=== PATIENT | female | born 1995 | race Caucasian/White ===

== ENCOUNTER 2021-11-05 21:13 | Emergency (ER) | payer BC ==
--- OUTSIDE RECORDS SUMMARY | 2021-11-05 21:21 | XMS REPORT | Continuity of Care Document ---
:1995 Author Organization [facility] t Address [address] [place] [address] Care Team Providers Name Role Phone PCP, PATIENT DOES NOT HAVE A Primary Care Physician Unavaila KALANI Miller III Attending Clinician Unavailable SHARRON SEVILLA Attending Clinician Unavailable Sharron May Attending Clinician HEIDI JAMES Attending Clinician Unavailable Heidi James MD Attending Clinician Shannen George MD Attending Clinician Evette Boles Attending Clinician Gil Bloom DO Attending Clinician SHANNEN GEORGE Attending Clinician Unavailable Noel Carrillo Attending Clinician ALTHEA LEYVA Attending Clinician Unavailable Unknown, Attending Attending Clinician Unavailable Doctor Unassigned, Lloyd Attending Clinician Unavailable Liudmila Baker DO Attending Clinician Shannen George MD Admitting Clinician Payers Payer Name Policy Type Policy Number Effective Date Expiration Date S damien BC[employer] FED SELECT [id number] 2017 00:00:00 Problems Condition Condition Condition Status Onset Resolution Last Treating Co mments Source Name Details Category Date Date Treatment Clinician Date Obesity Obesity Disease Active Univers (BMI (BMI 2-14 ity of 30-39.9) 30-39.9) 00:00: [place] 00 [facility] Acute Acute Disease Active Univers appendicit appendicit 2-13 it y of is is 00:00: [place] [facility] Decreased Decreased Disease Active Uni vers strength strength 9-23 ity of 00:00: [place] [facility] Lumbago Lumbago Disease Active Univers 9-23 ity of 00:00: [place] [facility] Panic Panic Disease Active Univers attack attack 4-05 ity of 00:00: [place] [facility] Abnormal Abnormal Disease Active Unive rs weight weight 7-19 ity of gain gain 00:00: [place] 00 [facility] Allergic Allergic Disease Active Overview: Un lola rhinitis rhinitis Formattin ity of g of this [place] note Medical might be Branch different from the original. ICD10 Diagnosis Term Reimbursement Spec Utility Allergies, Adverse Reactions, Alerts Allergy Allergy Status Severity Reaction(s) Onset Inactive Treating Comm ents Source Name Type Date Date Clinician No Known DA Active [facility] 3-13 [facility] NO KNOWN Drug Active Univers DRUG Class 4-17 ity of ALLERGIE 00:00: [place] S 00 [facility] Branch No Known Propensi Active Univer s Drug ty to 4-17 ity of Allergie adverse 00:00: [place] s reaction Medical s Branch Social History Social Habit Start Date Stop Date Quantity Comments Source Exposure to Not sure [facility] SARS-CoV-2 [facility] (event) Branch Alcohol intake 2021-02-03 2021-02-03 Ex-drinker [facility] 00:00:00 00:00:00 (finding) [facility] Tobacco use and 2012-06-30 2012-06-30 Never used Universit y of exposure 00:00:00 00:00:00 [facility] Sex Ass[birth year] At [birth year] Universit y of 00:00:00 00:00:00 [facility] Smoking Status Start Date Stop Date Source Never smoker [facility] Medications Ordered Filled Start Stop Current Ordering Indication Dosage Frequency Signature Comments Components Source Medication Medication Date Date Medication? Clinician (SIG) Name Name sulfamethox 2020-03- No [id number] 1{tbl} Take 1 Univers azole-trime 03-31 tablet by it y 00:00: 05:59 mouth 2 [place] (BACTRIM 00 :00 (two) Medical DS) 800-160 times Branch mg per daily for tablet 3 days. docusate Yes 100mg 100 mg, Unive rs (COLACE) 2-14 Oral, BID, ity o f capsule 100 06:15: First dose [place] mg 00 on [facility] 04/23/20 at Branch 0015, Until Discontinu ed, Routine alum-mag 2020- No 30mL 30 mL, Univer s hydroxide-s 2- 02-16 Oral, BID, i ty of imeth 06:15: 01:59 4 doses, [place] (MAALOX 00 :00 First dose Medica l PLUS / on [facility] MAG-AL 04/23/20 at PLUS) 0015, Last 200-200-20 dose on mg/5 mL Mon suspension 04/24/20 at 30 mL 0800, Routine ibuprofen Yes 400mg 400 mg, Univ ers (IBU) 2-14 Oral, ity of tablet 400 06:02: Q6[place]PRN[place] 16 Starting [facility] 04/23/20 at 0002, Until Discontinu ed, Routine, Pain (scale 1-3) HYDROcodone Yes 1{tbl} 1 tablet, Univers -acetaminop 2-14 Oral, ity of hen (NORCO) 06:02: Q6HPRN, [place] 10-325 mg 07 Starting Medica l tablet 1 Sun Branch tablet 04/23/20 at 0002, Until Discontinu ed, Routine, Pain (scale 4-6) morpHINE Yes 2mg 2 mg, Slow Uni vers injection 2 2-14 IV Push, ity of mg 06:01: Q4HPRN, [place] 33 Starting [facility] 04/23/20 at 0001, Until Discontinu ed, Routine, Pain (scale 7-10) diphenhydrA No 50mg 50 mg, Uni vers MINE 2-14 -14 Slow IV ity of (BENADRYL) 05:15: 04:21 Push, [place] injection 00 :00 ONCE, 1 Medical 50 mg dose, Sat Branch 04/22/20 at 2315, Routine HYDROcodone 2020-0 2020- No 1{tbl} 1 tablet, Univers -acetaminop 2-14 -14 Oral, ity of hen (NORCO) 04:05: 06:02 Q6HPRN, [place] 10-325 mg 28 :27 Starting Medica l tablet 1 Sat Branch tablet 04/22/20 at 2205, Until 04/23/20 at 0002, Routine, Pain (scale 7-10) amoxicillin 0 Yes [id number] 500mg Take 1 Univers -pot 2-14 tablet by ity of clavulanate 00:00: mouth 3 [place] 500 mg 00 (three) Medical 500-125 mg times Branch tablet daily. HYDROcodone 2020-0 Yes [id number] 1{tbl} Take 1 Un lola -acetaminop 2-14 tablet by ity of hen (NORCO) 00:00: mouth [place] 5-325 mg 00 every 6 Medical tablet (six) Branch hours as needed for Pain (scale 7-10). Indication s: acute pain ibuprofen 0 Yes [id number] 800mg Take 1 U nivers 800 mg 2-14 tablet by ity of tablet 00:00: mouth 3 [place] 00 (three) Medical times Branch daily with meals. acetaminoph 2020-0 Yes 650mg 650 mg, Un lola en 2-14 Oral, Q6H, ity of (TYLENOL) 00:00: [place] tablet 650 00 on Sat Medical mg 04/22/20 at Branch 1800, Until Discontinu ed, Routine amoxicillin 2020-0 Yes [id number] 500mg Take 1 Univers -pot 2-14 tablet by ity of clavulanate 00:00: mouth 3 [place] 500 mg 00 (three) Medical 500-125 mg times Branch tablet daily. HYDROcodone 2020-0 Yes [id number] 1{tbl} Take 1 Un lola -acetaminop 2-14 tablet by ity of hen (NORCO) 00:00: mouth [place] 5-325 mg 00 every 6 Medical tablet (six) Branch hours as needed for Pain (scale 7-10). Indication s: acute pain ibuprofen 2021-0 Yes [id number] 800mg Take 1 U nivers 800 mg 2-14 tablet by ity of tablet 00:00: mouth 3 [place] 00 (three) Medical times Branch daily with meals. amoxicillin 2021-0 Yes [id number] 500mg Take 1 Univers -pot 2-14 tablet by ity of clavulanate 00:00: mouth 3 [place] 500 mg 00 (three) Medical 500-125 mg times Branch tablet daily. HYDROcodone 2021-0 Yes [id number] 1{tbl} Take 1 Un lola -acetaminop 2-14 tablet by ity of hen (NORCO) 00:00: mouth [place] 5-325 mg 00 every 6 Medical tablet (six) Branch hours as needed for Pain (scale 7-10). Indication s: acute pain ibuprofen 1-0 Yes [id number] 800mg Take 1 U nivers 800 mg 2-14 tablet by ity of tablet 00:00: mouth 3 [place] 00 (three) Medical times Branch daily with meals. amoxicillin 1-0 Yes [id number] 500mg Take 1 Univers -pot 2-14 tablet by ity of clavulanate 00:00: mouth 3 [place] 500 mg 00 (three) Medical 500-125 mg times Branch tablet daily. HYDROcodone 2021-0 Yes [id number] 1{tbl} Take 1 Un lola -acetaminop 2-14 tablet by ity of hen (NORCO) 00:00: mouth [place] 5-325 mg 00 every 6 Medical tablet (six) Branch hours as needed for Pain (scale 7-10). Indication s: acute pain ibuprofen 1-0 Yes [id number] 800mg Take 1 U nivers 800 mg 2-14 tablet by ity of tablet 00:00: mouth 3 [place] 00 (three) Medical times Branch daily with meals. amoxicillin 2021-0 Yes [id number] 500mg Take 1 Univers -pot 2-14 tablet by ity of clavulanate 00:00: mouth 3 [place] 500 mg 00 (three) Medical 500-125 mg times Branch tablet daily. HYDROcodone 2021-0 Yes [id number] 1{tbl} Take 1 Un lola -acetaminop 2-14 tablet by ity of hen (NORCO) 00:00: mouth [place] 5-325 mg 00 every 6 Medical tablet (six) Branch hours as needed for Pain (scale 7-10). Indication s: acute pain ibuprofen 2020-0 Yes [id number] 800mg Take 1 U nivers 800 mg 2-14 tablet by ity of tablet 00:00: mouth 3 [place] 00 (three) Medical times Branch daily with meals. amoxicillin 2020-0 Yes [id number] 500mg Take 1 Univers -pot 2-14 tablet by ity of clavulanate 00:00: mouth 3 [place] 500 mg 00 (three) Medical 500-125 mg times Branch tablet daily. HYDROcodone 2020-0 Yes [id number] 1{tbl} Take 1 Un lola -acetaminop 2-14 tablet by ity of hen (NORCO) 00:00: mouth [place] 5-325 mg 00 every 6 Medical tablet (six) Branch hours as needed for Pain (scale 7-10). Indication s: acute pain ibuprofen 2020-0 Yes [id number] 800mg Take 1 U nivers 800 mg 2-14 tablet by ity of tablet 00:00: mouth 3 [place] 00 (three) Medical times Branch daily with meals. ibuprofen 2020-0 2020- No [id number] 800mg Take 1 Univers 800 mg 2-14 02-14 tablet by ity of tablet 00:00: 00:00 mouth 3 [place] 00 :00 (three) Medical times Branch daily with meals. HYDROcodone 2020-0 2021- No [id number] 1{tbl} Take 1 U nivers -acetaminop 2-14 02-14 tablet by it y of hen (NORCO) 00:00: 00:00 mouth [place] 5-325 mg 00 :00 every 6 Medical tablet (six) Branch hours as needed for Pain (scale 7-10) for up to 7 days. Indication s: acute pain amoxicillin 2020-0 2021- No [id number] 500mg Take 1 Univers -pot 2-14 02-14 tablet by ity of clavulanate 00:00: 00:00 mouth 3 [place] 500 mg 00 :00 (three) Medical 500-125 mg times Branch tablet daily for 3 days. lactated 2020-0 Yes 1000mL at 42 Univer s ringers IV 2-13 mL/hr, ity of infusion 23:15: 1,000 mL, [place] 1,000 mL 00 IV Medical Infusion, Branch CONTINUOUS , Starting 04/22/20 at 1715, Until Discontinu ed, Routine, PACU ibuprofen No 400mg 400 mg, Uni vers (IBU) 04-22 Oral, ity of tablet 400 22:49: 06:02 Q6HPRN, [place] mg 08 :27 Starting Medical Sat Branch 04/22/20 at 1649, Until 04/23/20 at 0002, Routine, Pain (scale 4-6) HYDROcodone 2020- No 1{tbl} 1 tablet, Univers -acetaminop 04-22 Oral, ity of hen (NORCO 22:48: 04:05 Q6HPRN, [place] 5) 5-325 mg 59 :57 Starting Medi christen tablet 1 Sat Branch tablet 04/22/20 at 1648, Until 04/22/20 at 2205, Routine, Pain (scale 7-10) piperacilli Yes 3.375g 3.375 g, Univers n-tazobacta 04-22 IV ity of m (ZOSYN) 20:00: [place] 3.375 g in 00 Q6H ABX, Medic al NaCl 0.9% First dose Bran ch (NS) 100 mL on Sat MINI-BAG 04/22/20 at 1400, Until Discontinu ed, 100 mL
R loni for Anti-Infec tive: Documented Infection< br>Documen sly Infection Site: Abdominal< br>Duratio n of Therapy: 7 days iohexol 2020- No 100mL 100 mL, Unive rs (OMNIPAQUE 04-22 Intravenou it y of 350 18:45: 18:25 s, ONCE, 1 [place] BULK-100 00 :00 dose, Sat Medica l mL) 04/22/20 at Branch injection 1245, 100 mL Routine NaCl 0.9% 2020- No 1000mL at 999 Uni vers (NS) bolus 04-22 mL/hr, ity of infusion 18:45: 17:45 1,000 mL, [place] 1,000 mL 00 :00 IV Medical Infusion, Branch ONCE, 1 dose, 2/13/21 at 1245, STAT ondansetron 2020-0 2020- No 4mg 4 mg, Slow Univers (ZOFRAN 04-22 IV Push, ity of (PF)) 18:30: 17:46 ONCE, 1 [place] injection 4 00 :00 dose, Sat Med ical mg 04/22/20 at Branch 1230, HADLEY morpHINE 2020-0 202- No 4mg 4 mg, Slow Un lola injection 4 04-22 IV Push, ity of mg 18:30: 17:46 ONCE, 1 [place] 00 :00 dose, Sat Medical 04/22/20 at Branch 1230, STAT ondansetron 2019-0 2020- No 4mg 4 mg, Slow Univers (ZOFRAN 8- 08-08 IV Push, ity of (PF)) 03:30: 02:30 ONCE, 1 [place] injection 4 00 :00 dose, Fri Med ical mg 10/15/19 at Branch 2230, HADLEY ondansetron 2020-0 Yes [id number] 4mg Take 1 Univers (ZOFRAN 8-07 tablet by ity of ODT) 4 mg 00:00: mouth [place] disintegrat 00 every 8 Medic al ing tablet (eight) Branch hours as needed for Nausea and Vomiting (N/V). ondansetron 2020-0 Yes [id number] 4mg Take 1 Univers (ZOFRAN 8-07 tablet by ity of ODT) 4 mg 00:00: mouth [place] disintegrat 00 every 8 Medic al ing tablet (eight) Branch hours as needed for Nausea and Vomiting (N/V). ondansetron 2020-0 Yes [id number] 4mg Take 1 Univers (ZOFRAN 8-07 tablet by ity of ODT) 4 mg 00:00: mouth [place] disintegrat 00 every 8 Medic al ing tablet (eight) Branch hours as needed for Nausea and Vomiting (N/V). ondansetron 2020-0 Yes [id number] 4mg Take 1 Univers (ZOFRAN 8-07 tablet by ity of ODT) 4 mg 00:00: mouth [place] disintegrat 00 every 8 Medic al ing tablet (eight) Branch hours as needed for Nausea and Vomiting (N/V). ondansetron 2020-0 Yes [id number] 4mg Take 1 Univers (ZOFRAN 8-07 tablet by ity of ODT) 4 mg 00:00: mouth [place] disintegrat 00 every 8 Medic al ing tablet (eight) Branch hours as needed for Nausea and Vomiting (N/V). ondansetron 2020-0 Yes [id number] 4mg Take 1 Univers (ZOFRAN 8-07 tablet by ity of ODT) 4 mg 00:00: mouth [place] disintegrat 00 every 8 Medic al ing tablet (eight) Branch hours as needed for Nausea and Vomiting (N/V). ondansetron 2020-0 Yes [id number] 4mg Take 1 Univers (ZOFRAN 8-07 tablet by ity of ODT) 4 mg 00:00: mouth [place] disintegrat 00 every 8 Medic al ing tablet (eight) Branch hours as needed for Nausea and Vomiting (N/V). ondansetron 2020-0 Yes [id number] 4mg Take 1 Univers (ZOFRAN 8-07 tablet by ity of ODT) 4 mg 00:00: mouth [place] disintegrat 00 every 8 Medic al ing tablet (eight) Branch hours as needed for Nausea and Vomiting (N/V). ondansetron 2020-0 Yes [id number] 4mg Take 1 Univers (ZOFRAN 8-07 tablet by ity of ODT) 4 mg 00:00: mouth [place] disintegrat 00 every 8 Medic al ing tablet (eight) Branch hours as needed for Nausea and Vomiting (N/V). Immunizations Ordered Immunization Filled Immunization Date Status Commen ts Source Name Name NAYELY HART 2021-08-24 Completed 00:00:00 HEPATITIS A 2009-06-14 Completed University of 00:00:00 [facility] HPV 2009-06-14 Completed University of 00:00:00 [facility] HEPATITIS A 2009-06-14 Completed University of 00:00:00 [facility] HPV 2009-06-14 Completed University of 00:00:00 [facility] HEPATITIS A 2009-06-14 Completed University of 00:00:00 [facility] HPV 2009-06-14 Completed University of 00:00:00 [facility] HEPATITIS A 2009-06-14 Completed University of 00:00:00 [facility] HPV 2009-06-14 Completed University of 00:00:00 [facility] HEPATITIS A 2009-06-14 Completed University of 00:00:00 [facility] HPV 2009-06-14 Completed University of 00:00:00 [facility] HEPATITIS A 2009-06-14 Completed University of 00:00:00 [facility] Branch HPV 2009-06-14 Completed University of 00:00:00 [facility] HEPATITIS A 2009-06-14 Completed University of 00:00:00 [facility] Branch HPV 2009-06-14 Completed University of 00:00:00 [facility] HEPATITIS A 2009-06-14 Completed University of 00:00:00 [facility] Branch HPV 2009-06-14 Completed University of 00:00:00 [facility] HEPATITIS A 2009-06-14 Completed University of 00:00:00 [facility] Branch HPV 2009-06-14 Completed University of 00:00:00 [facility] HPV 2009-01-06 Completed University of 00:00:00 [facility] HPV 2009-01-06 Completed University of 00:00:00 [facility] Branch HPV 2009-01-06 Completed University of 00:00:00 [facility] HPV 2009-01-06 Completed University of 00:00:00 [facility] HPV 2009-01-06 Completed University of 00:00:00 [facility] HPV 2009-01-06 Completed University of 00:00:00 [facility] HPV 2009-01-06 Completed University of 00:00:00 [facility] HPV 2009-01-06 Completed University of 00:00:00 [facility] HPV 2009-01-06 Completed University of 00:00:00 [facility] HEPATITIS A 2008-10-26 Completed University of 00:00:00 [facility] HPV 2008-10-26 Completed University of 00:00:00 [facility] Meningococcal 2008-10-26 Completed University of Polysaccharide 00:00:00 [place] Medi christen (groups A, C, Y and Branc h W-135) conjugate vaccine (MCV4P) TDAP 2008-10-26 Completed University of 00:00:00 [facility] Varicella 2008-10-26 Completed University of (varivax)(chicken 00:00:00 [place] M edical pox) Branch HEPATITIS A 2008-10-26 Completed University of 00:00:00 [facility] HPV 2008-10-26 Completed University of 00:00:00 [facility] Meningococcal 2008-10-26 Completed University of Polysaccharide 00:00:00 [place] Medi christen (groups A, C, Y and Branc h W-135) conjugate vaccine (MCV4P) TDAP 2008-10-26 Completed University of 00:00:00 [facility] Varicella 2008-10-26 Completed University of (varivax)(chicken 00:00:00 [place] M edical pox) Branch HEPATITIS A 2008-10-26 Completed University of 00:00:00 [facility] HPV 2008-10-26 Completed University of 00:00:00 [facility] Meningococcal 2008-10-26 Completed University of Polysaccharide 00:00:00 [place] Medi christen (groups A, C, Y and Branc h W-135) conjugate vaccine (MCV4P) TDAP 2008-10-26 Completed University of 00:00:00 [facility] Varicella 2008-10-26 Completed University of (varivax)(chicken 00:00:00 [place] M edical pox) Branch HEPATITIS A 2008-10-26 Completed University of 00:00:00 [facility] HPV 2008-10-26 Completed University of 00:00:00 [facility] Meningococcal 2008-10-26 Completed University of Polysaccharide 00:00:00 [place] Medi christen (groups A, C, Y and Branc h W-135) conjugate vaccine (MCV4P) TDAP 2008-10-26 Completed University of 00:00:00 [facility] Varicella 2008-10-26 Completed University of (varivax)(chicken 00:00:00 [place] M edical pox) Branch HEPATITIS A 2008-10-26 Completed University of 00:00:00 [facility] HPV 2008-10-26 Completed University of 00:00:00 [facility] Meningococcal 2008-10-26 Completed University of Polysaccharide 00:00:00 [place] Medi christen (groups A, C, Y and Branc h W-135) conjugate vaccine (MCV4P) TDAP 2008-10-26 Completed University of 00:00:00 [facility] Varicella 2008-10-26 Completed University of (varivax)(chicken 00:00:00 [place] M edical pox) Branch HEPATITIS A 2008-10-26 Completed University of 00:00:00 [facility] HPV 2008-10-26 Completed University of 00:00:00 [facility] Meningococcal 2008-10-26 Completed University of Polysaccharide 00:00:00 [place] Medi christen (groups A, C, Y and Branc h W-135) conjugate vaccine (MCV4P) TDAP 2008-10-26 Completed University of 00:00:00 [facility] Varicella 2008-10-26 Completed University of (varivax)(chicken 00:00:00 [place] M edical pox) Branch HEPATITIS A 2008-10-26 Completed University of 00:00:00 [facility] HPV 2008-10-26 Completed University of 00:00:00 [facility] Meningococcal 2008-10-26 Completed University of Polysaccharide 00:00:00 [place] Medi christen (groups A, C, Y and Branc h W-135) conjugate vaccine (MCV4P) TDAP 2008-10-26 Completed University of 00:00:00 [facility] Varicella 2008-10-26 Completed University of (varivax)(chicken 00:00:00 [place] M edical pox) Branch HEPATITIS A 2008-10-26 Completed University of 00:00:00 [facility] HPV 2008-10-26 Completed University of 00:00:00 [facility] Meningococcal 2008-10-26 Completed University of Polysaccharide 00:00:00 [facility] christen (groups A, C, Y and Branc h W-135) conjugate vaccine (MCV4P) TDAP 2008-10-26 Completed University of 00:00:00 [facility] Varicella 2008-10-26 Completed University of (varivax)(chicken 00:00:00 [place] M edical pox) Branch HEPATITIS A 2008-10-26 Completed University of 00:00:00 [facility] HPV 2008-10-26 Completed University of 00:00:00 [facility] Meningococcal 2008-10-26 Completed University of Polysaccharide 00:00:00 [facility] christen (groups A, C, Y and Branc h W-135) conjugate vaccine (MCV4P) TDAP 2008-10-26 Completed University of 00:00:00 [facility] Varicella 2008-10-26 Completed University of (varivax)(chicken 00:00:00 [place] M edical pox) Branch Influenza Virus 2008-03-23 Completed Universit y of Vaccine 00:00:00 [facility] Influenza Virus 2008-03-23 Completed Universit y of Vaccine 00:00:00 [facility] Influenza Virus 2008-03-23 Completed Universit y of Vaccine 00:00:00 [facility] Influenza Virus 2008-03-23 Completed Universit y of Vaccine 00:00:00 [facility] Influenza Virus 2008-03-23 Completed Universit y of Vaccine 00:00:00 [facility] Influenza Virus 2008-03-23 Completed Universit y of Vaccine 00:00:00 [facility] Influenza Virus 2008-03-23 Completed Universit y of Vaccine 00:00:00 [facility] Influenza Virus 2008-03-23 Completed Universit y of Vaccine 00:00:00 [facility] Influenza Virus 2008-03-23 Completed Universit y of Vaccine 00:00:00 [facility] Influenza Virus 2007-01-02 Completed Universit y of Vaccine 00:00:00 [facility] Influenza Virus 2007-01-02 Completed Universit y of Vaccine 00:00:00 [facility] Influenza Virus 2007-01-02 Completed Universit y of Vaccine 00:00:00 [facility] Influenza Virus 2007-01-02 Completed Universit y of Vaccine 00:00:00 [facility] Influenza Virus 2007-01-02 Completed Universit y of Vaccine 00:00:00 [facility] Influenza Virus 2007-01-02 Completed Universit y of Vaccine 00:00:00 [facility] Influenza Virus 2007-01-02 Completed Universit y of Vaccine 00:00:00 [facility] Influenza Virus 2007-01-02 Completed Universit y of Vaccine 00:00:00 [facility] Influenza Virus 2007-01-02 Completed Universit y of Vaccine 00:00:00 [facility] Influenza Virus 2006-02-14 Completed Universit y of Vaccine 00:00:00 [facility] Influenza Virus 2006-02-14 Completed Universit y of Vaccine 00:00:00 [facility] Influenza Virus 2006-02-14 Completed Universit y of Vaccine 00:00:00 [facility] Influenza Virus 2006-02-14 Completed Universit y of Vaccine 00:00:00 [facility] Influenza Virus 2006-02-14 Completed Universit y of Vaccine 00:00:00 [facility] Influenza Virus 2006-02-14 Completed Universit y of Vaccine 00:00:00 [facility] Influenza Virus 2006-02-14 Completed Universit y of Vaccine 00:00:00 [facility] Influenza Virus 2006-02-14 Completed Universit y of Vaccine 00:00:00 [facility] Influenza Virus 2006-02-14 Completed Universit y of Vaccine 00:00:00 [facility] Influenza Virus 2002-12-20 Completed Universit y of Vaccine 00:00:00 [facility] Influenza Virus 2002-12-20 Completed [facility] Vaccine 00:00:00 [facility] Influenza Virus 2002-12-20 Completed [facility]it y of Vaccine 00:00:00 [facility] Influenza Virus 2002-12-20 Completed Universit y of Vaccine 00:00:00 [facility] Influenza Virus 2002-12-20 Completed Universit y of Vaccine 00:00:00 [facility] Influenza Virus 2002-12-20 Completed Universit y of Vaccine 00:00:00 [facility] Influenza Virus 2002-12-20 Completed Universit y of Vaccine 00:00:00 [facility] Influenza Virus 2002-12-20 Completed [facility]it y of Vaccine 00:00:00 [facility] Influenza Virus 2002-12-20 Completed Universit y of Vaccine 00:00:00 [facility] DTAP 2002-06-16 Completed University of 00:00:00 [facility] MMR 2002-06-16 Completed University of 00:00:00 [facility] Polio (IPV/OPV) 2002-06-16 Completed Universit y of 00:00:00 [facility] DTAP 2002-06-16 Completed University of 00:00:00 [facility] MMR 2002-06-16 Completed University of 00:00:00 [facility] Polio (IPV/OPV) 2002-06-16 Completed Universit y of 00:00:00 [facility] DTAP 2002-06-16 Completed University of 00:00:00 [facility] MMR 2002-06-16 Completed University of 00:00:00 [facility] Polio (IPV/OPV) 2002-06-16 Completed Universit [facility] of 00:00:00 [facility] DTAP 2002-06-16 Completed University of 00:00:00 [facility] MMR 2002-06-16 Completed University of 00:00:00 [facility] Polio (IPV/OPV) 2002-06-16 Completed Universit [facility] of 00:00:00 [facility] DTAP 2002-06-16 Completed University of 00:00:00 [facility] MMR 2002-06-16 Completed University of 00:00:00 [facility] Polio (IPV/OPV) 2002-06-16 Completed Universit [facility] of 00:00:00 [facility] DTAP 2002-06-16 Completed University of 00:00:00 [facility] MMR 2002-06-16 Completed University of 00:00:00 [facility] Polio (IPV/OPV) 2002-06-16 Completed Universit [facility] of 00:00:00 [facility] DTAP 2002-06-16 Completed University of 00:00:00 [facility] MMR 2002-06-16 Completed University of 00:00:00 [facility] Polio (IPV/OPV) 2002-06-16 Completed Universit [facility] of 00:00:00 [facility] DTAP 2002-06-16 Completed University of 00:00:00 [facility] MMR 2002-06-16 Completed University of 00:00:00 [facility] Polio (IPV/OPV) 2002-06-16 Completed Universit [facility] of 00:00:00 [facility] DTAP 2002-06-16 Completed University of 00:00:00 [facility] MMR 2002-06-16 Completed University of 00:00:00 [facility] Polio (IPV/OPV) 2002-06-16 Completed Universit y of 00:00:00 [facility] DTAP 1997-04-11 Completed University of 00:00:00 [facility] HIB 4 Dose Schedule 1997-04-11 Completed Unive rsity of 00:00:00 [facility] MMR 1997-04-11 Completed University of 00:00:00 [facility] Td 1997-04-11 Completed University of 00:00:00 [facility] Varicella 1997-04-11 Completed University of (varivax)(chicken 00:00:00 [facility] DTAP 1997-04-11 Completed [facility] of 00:00:00 [facility] HIB 4 Dose Schedule 1997-04-11 Completed Unive rsity of 00:00:00 [facility] MMR 1997-04-11 Completed University of 00:00:00 [facility] Td 1997-04-11 Completed University of 00:00:00 [facility] Varicella 1997-04-11 Completed University of (varivax)(chicken 00:00:00 [facility] DTAP 1997-04-11 Completed University of 00:00:00 [facility] HIB 4 Dose Schedule 1997-04-11 Completed Unive rsity of 00:00:00 [facility] MMR 1997-04-11 Completed University of 00:00:00 [facility] Td 1997-04-11 Completed University of 00:00:00 [facility] Varicella 1997-04-11 Completed University of (varivax)(chicken 00:00:00 [facility] DTAP 1997-04-11 Completed University of 00:00:00 [facility] HIB 4 Dose Schedule 1997-04-11 Completed Unive rsity of 00:00:00 [facility] MMR 1997-04-11 Completed University of 00:00:00 [facility] Td 1997-04-11 Completed University of 00:00:00 [facility] Varicella 1997-04-11 Completed University of (varivax)(chicken 00:00:00 [facility] DTAP 1997-04-11 Completed University of 00:00:00 [facility] HIB 4 Dose Schedule 1997-04-11 Completed Unive rsity of 00:00:00 [facility] MMR 1997-04-11 Completed University of 00:00:00 [facility] Td 1997-04-11 Completed University of 00:00:00 [facility] Varicella 1997-04-11 Completed [facility] of (varivax)(chicken 00:00:00 [place] [facility] DTAP 1997-04-11 Completed University of 00:00:00 [facility] HIB 4 Dose Schedule 1997-04-11 Completed Unive rsity of 00:00:00 [facility] MMR 1997-04-11 Completed University of 00:00:00 [facility] Td 1997-04-11 Completed University of 00:00:00 [facility] Varicella 1997-04-11 Completed [facility] of (varivax)(chicken 00:00:00 [facility] DTAP 1997-04-11 Completed University of 00:00:00 [facility] HIB 4 Dose Schedule 1997-04-11 Completed Unive rsity of 00:00:00 [facility] MMR 1997-04-11 Completed University of 00:00:00 [facility] Td 1997-04-11 Completed University of 00:00:00 [facility] Varicella 1997-04-11 Completed [facility] of (varivax)(chicken 00:00:00 [facility] DTAP 1997-04-11 Completed University of 00:00:00 [facility] HIB 4 Dose Schedule 1997-04-11 Completed Unive rsity of 00:00:00 [facility] MMR 1997-04-11 Completed University of 00:00:00 [facility] Td 1997-04-11 Completed University of 00:00:00 [facility] Varicella 1997-04-11 Completed University of (varivax)(chicken 00:00:00 [place] [facility] DTAP 1997-04-11 Completed University of 00:00:00 [facility] HIB 4 Dose Schedule 1997-04-11 Completed Unive rsity of 00:00:00 [facility] MMR 1997-04-11 Completed University of 00:00:00 [facility] Td 1997-04-11 Completed University of 00:00:00 [facility] Varicella 1997-04-11 Completed University of (varivax)(chicken 00:00:00 [place] [facility] DTP 1996 Completed University of 00:00:00 [facility] Hep B, Adol or Pedi 1996 Completed Unive rsity of Dosage 00:00:00 [facility] HIB 4 Dose Schedule 1996 Completed Unive rsity of 00:00:00 [facility] Polio (IPV/OPV) 1996 Completed Univers[facility] of 00:00:00 [facility] DTP 1996 Completed University of 00:00:00 [facility] Hep B, Adol or Pedi 1996 Completed Unive rsity of Dosage 00:00:00 [facility] HIB 4 Dose Schedule 1996 Completed Unive rsity of 00:00:00 [facility] Polio (IPV/OPV) 1996 Completed Univers[facility] of 00:00:00 [facility] DTP 1996 Completed University of 00:00:00 [facility] Hep B, Adol or Pedi 1996 Completed Unive rsity of Dosage 00:00:00 [facility] HIB 4 Dose Schedule 1996 Completed Unive rsity of 00:00:00 [facility] Polio (IPV/OPV) 1996 Completed Univers[facility] of 00:00:00 [facility] DTP 1996 Completed University of 00:00:00 [facility] Hep B, Adol or Pedi 1996 Completed Unive rsity of Dosage 00:00:00 [facility] HIB 4 Dose Schedule 1996 Completed Unive rsity of 00:00:00 [facility] Polio (IPV/OPV) 1996 Completed [facility] of 00:00:00 [facility] DTP 1996 Completed [facility] of 00:00:00 [facility] Hep B, Adol or Pedi 1996 Completed Unive rsity of Dosage 00:00:00 [facility] HIB 4 Dose Schedule 1996 Completed Unive rsity of 00:00:00 [facility] Polio (IPV/OPV) 1996 Completed [facility] y of 00:00:00 [facility] DTP 1996 Completed University of 00:00:00 [facility] Hep B, Adol or Pedi 1996 Completed Unive rsity of Dosage 00:00:00 [facility] HIB 4 Dose Schedule 1996 Completed Unive rsity of 00:00:00 [facility] Polio (IPV/OPV) 1996 Completed [facility] of 00:00:00 [facility] DTP 1996 Completed University of 00:00:00 [facility] Hep B, Adol or Pedi 1996 Completed Unive rsity of Dosage 00:00:00 [facility] HIB 4 Dose Schedule 1996 Completed Unive rsity of 00:00:00 [facility] Polio (IPV/OPV) 1996 Completed Univers[facility] of 00:00:00 [facility] DTP 1996 Completed University of 00:00:00 [facility] Hep B, Adol or Pedi 1996 Completed Unive rsity of Dosage 00:00:00 [facility] HIB 4 Dose Schedule 1996 Completed Unive rsity of 00:00:00 [facility] Polio (IPV/OPV) 1996 Completed Univers[facility] y of 00:00:00 [facility] DTP 1996 Completed University of 00:00:00 [facility] Hep B, Adol or Pedi 1996 Completed Unive rsity of Dosage 00:00:00 [facility] HIB 4 Dose Schedule 1996 Completed Unive rsity of 00:00:00 [facility] Polio (IPV/OPV) 1996 Completed Universit y of 00:00:00 [facility] DTP 1996 Completed University of 00:00:00 [facility] HIB 4 Dose Schedule 1996 Completed Unive rsity of 00:00:00 [facility] Polio (IPV/OPV) 1996 Completed [facility] of 00:00:00 [facility] DTP 1996 Completed University of 00:00:00 [facility] HIB 4 Dose Schedule 1996 Completed Unive rsity of 00:00:00 [facility] Polio (IPV/OPV) 1996 Completed Universit y of 00:00:00 [facility] DTP 1996 Completed University of 00:00:00 [facility] HIB 4 Dose Schedule 1996 Completed Unive rsity of 00:00:00 [facility] Polio (IPV/OPV) 1996 Completed Universit y of 00:00:00 [facility] DTP 1996 Completed University of 00:00:00 [facility] HIB 4 Dose Schedule 1996 Completed Unive rsity of 00:00:00 [facility] Polio (IPV/OPV) 1996 Completed Univers[facility] y of 00:00:00 [facility] DTP 1996 Completed University of 00:00:00 [facility] HIB 4 Dose Schedule 1996 Completed Unive rsity of 00:00:00 [facility] Polio (IPV/OPV) 1996 Completed Universit y of 00:00:00 [facility] DTP 1996 Completed University of 00:00:00 [facility] HIB 4 Dose Schedule 1996 Completed Unive rsity of 00:00:00 [facility] Polio (IPV/OPV) 1996 Completed Universit y of 00:00:00 [facility] DTP 1996 Completed University of 00:00:00 [facility] HIB 4 Dose Schedule 1996 Completed Unive rsity of 00:00:00 [facility] Polio (IPV/OPV) 1996 Completed Universit y of 00:00:00 [facility] DTP 1996 Completed University of 00:00:00 [facility] HIB 4 Dose Schedule 1996 Completed Unive rsity of 00:00:00 [facility] Polio (IPV/OPV) 1996 Completed Universit y of 00:00:00 [facility] DTP 1996 Completed University of 00:00:00 [facility] HIB 4 Dose Schedule 1996 Completed Unive rsity of 00:00:00 [facility] Polio (IPV/OPV) 1996 Completed Universit y of 00:00:00 [facility] DTP 1996 Completed University of 00:00:00 [facility] Hep B, Adol or Pedi 1996 Completed Unive rsity of Dosage 00:00:00 [facility] HIB 4 Dose Schedule 1996 Completed Unive rsity of 00:00:00 [facility] Polio (IPV/OPV) 1996 Completed Universit y of 00:00:00 [facility] DTP 1996 Completed University of 00:00:00 [facility] Hep B, Adol or Pedi 1996 Completed Unive rsity of Dosage 00:00:00 [facility] HIB 4 Dose Schedule 1996 Completed Unive rsity of 00:00:00 [facility] Polio (IPV/OPV) 1996 Completed Univers[facility] of 00:00:00 [facility] DTP 1996 Completed [facility] of 00:00:00 [facility] Hep B, Adol or Pedi 1996 Completed Unive rsity of Dosage 00:00:00 [facility] HIB 4 Dose Schedule 1996 Completed Unive rsity of 00:00:00 [facility] Polio (IPV/OPV) 1996 Completed Univers[facility] y of 00:00:00 [facility] DTP 1996 Completed University of 00:00:00 [facility] Hep B, Adol or Pedi 1996 Completed Unive rsity of Dosage 00:00:00 [facility] HIB 4 Dose Schedule 1996 Completed Unive rsity of 00:00:00 [facility] Polio (IPV/OPV) 1996 Completed Universit y of 00:00:00 [facility] DTP 1996 Completed [facility] of 00:00:00 [facility] Hep B, Adol or Pedi 1996 Completed Unive rsity of Dosage 00:00:00 [facility] HIB 4 Dose Schedule 1996 Completed Unive rsity of 00:00:00 [facility] Polio (IPV/OPV) 1996 Completed [facility] y of 00:00:00 [facility] DTP 1996 Completed University of 00:00:00 [facility] Hep B, Adol or Pedi 1996 Completed Unive rsity of Dosage 00:00:00 [facility] HIB 4 Dose Schedule 1996 Completed Unive rsity of 00:00:00 [facility] Polio (IPV/OPV) 1996 Completed Univers[facility] y of 00:00:00 [facility] DTP 1996 Completed [facility] of 00:00:00 [facility] Hep B, Adol or Pedi 1996 Completed Unive rsity of Dosage 00:00:00 [facility] HIB 4 Dose Schedule 1996 Completed Unive rsity of 00:00:00 [facility] Polio (IPV/OPV) 1996 Completed Universit y of 00:00:00 [facility] DTP 1996 Completed University of 00:00:00 [facility] Hep B, Adol or Pedi 1996 Completed Unive rsity of Dosage 00:00:00 [facility] HIB 4 Dose Schedule 1996 Completed Unive rsity of 00:00:00 [facility] Polio (IPV/OPV) 1996 Completed Universit y of 00:00:00 [facility] DTP 1996 Completed [facility] of 00:00:00 [facility] Hep B, Adol or Pedi 1996 Completed Unive rsity of Dosage 00:00:00 [facility] HIB 4 Dose Schedule 1996 Completed Unive rsity of 00:00:00 [facility] Polio (IPV/OPV) 1996 Completed [facility] of 00:00:00 [facility] Hep B, Adol or Pedi 1996 Completed Unive rsity of Dosage 00:00:00 [facility] Hep B, Adol or Pedi 1996 Completed Unive rsity of Dosage 00:00:00 [facility] Hep B, Adol or Pedi 1996 Completed Unive rsity of Dosage 00:00:00 [facility] Hep B, Adol or Pedi 1996 Completed Unive rsity of Dosage 00:00:00 [facility] Hep B, Adol or Pedi 1996 Completed Unive rsity of Dosage 00:00:00 [facility] Hep B, Adol or Pedi 1996 Completed Unive rsity of Dosage 00:00:00 [facility] Hep B, Adol or Pedi 1996 Completed Unive rsity of Dosage 00:00:00 [facility] Hep B, Adol or Pedi 1996 Completed Unive rsity of Dosage 00:00:00 [facility] Hep B, Adol or Pedi 1996 Completed Unive rsity of Dosage 00:00:00 [facility] Vital Signs Vital Name Observation Time Observation Value Comments Source Systolic blood 2021-02-03 20:20:00 112 mm[Hg] Univer sity of pressure [facility] Diastolic blood 2021-02-03 20:20:00 75 mm[Hg] Unive rsity of pressure [facility] Heart rate 2021-02-03 20:20:00 72 /min [facility] Body temperature 2021-02-03 20:20:00 36.89 Yelitza [facility] Res[facility] rate 2021-02-03 20:20:00 18 /min [facility] Body height 2021-02-03 20:20:00 177.8 cm [facility] Body weight 2021-02-03 20:20:00 103.148 kg [facility] BMI 2021-02-03 20:20:00 32.63 kg/m2 [facility] Oxygen saturation in 2021-02-03 20:20:00 98 /min [facility] Arterial blood by [facility] Pulse oximetry Branch Systolic blood 2021-01-29 22:59:00 110 mm[Hg] Univer sity of pressure [facility] Diastolic blood 2021-01-29 22:59:00 79 mm[Hg] Unive rsity of pressure [facility] Heart rate 2021-01-29 22:59:00 71 /min [facility] Body temperature 2021-01-29 22:59:00 36.67 Yelitza Univ ersity of [facility] Respiratory rate 2021-01-29 22:59:00 16 /min Univ ers[facility] Body weight 2021-01-29 22:59:00 103.42 kg [facility] BMI 2021-01-29 22:59:00 32.71 kg/m2 [facility] Oxygen saturation in 2021-01-29 22:59:00 98 /min University of Arterial blood by [facility] Pulse oximetry Branch Systolic blood 2020-04-23 13:12:00 99 mm[Hg] Univer sity of pressure [facility] Diastolic blood 2020-04-23 13:12:00 60 mm[Hg] Unive rsity of pressure [facility] Heart rate 2020-04-23 13:12:00 69 /min [facility] Body temperature 2020-04-23 13:12:00 36.17 Yelitza Univ [facility] Respiratory rate 2020-04-23 13:12:00 16 /min Univ ers[facility] of [facility] Oxygen saturation in 2020-04-23 13:12:00 97 /min University of Arterial blood by [facility] Pulse oximetry Branch Body weight 2020-04-23 09:35:00 101.833 kg [facility] BMI 2020-04-23 09:35:00 32.21 kg/m2 [facility] Body height 2020-04-23 00:08:00 177.8 cm [facility] Diastolic blood 2019-10-16 01:08:44 97 mm[Hg] Unive rsity of pressure [facility] Heart rate 2019-10-16 01:08:44 78 /min [facility] Body temperature 2019-10-16 01:08:44 36.89 Yelitza [facility] Respiratory rate 2019-10-16 01:08:44 17 /min Univ [facility] Systolic blood 2019-10-16 01:08:44 144 mm[Hg] Univer sity of pressure [facility] Body height 2019-10-16 01:06:00 177.8 cm [facility] Body weight 2019-10-16 01:06:00 99.791 kg [facility] BMI 2019-10-16 01:06:00 31.57 kg/m2 [facility] Oxygen saturation in 2019-10-16 01:06:00 99 /min [facility] Arterial blood by [facility] Pulse oximetry Branch Procedures Procedure Date / Time Performed Performing Clinician Sourc e POCT GRP A STREP 2021-02-03 00:00:00 Sharron Sevilla [facility] (MOLECULAR) [facility] POCT URINALYSIS 2021-01-29 23:04:00 Heidi James [place] [facility] COVID-19 (ID NOW RAPID 2020-04-22 19:04:00 Noel Ugarte [facility] TESTING) [facility] CT ABDOMEN PELVIS W 2020-04-22 18:35:55 Noel Ugarte [facility] CONTRAST Medical Branch LIPASE 2020-04-22 17:10:00 Liudmila Baker [facility] COMP. METABOLIC PANEL 2020-04-22 17:10:00 Liudmila Baker [facility] ([id number]) [facility] CBC WITH DIFF 2020-04-22 17:10:00 Liudmila Bakre [facility] URINALYSIS 2020-04-22 17:10:00 Liudmila Baker [facility] POCT TEST 2020-04-22 17:06:00 Liudmila Baker [facility] CONSENT/REFUSAL FOR 2020-04-22 16:48:42 [facility] TREATMENT LIPASE 2019-10-16 02:30:00 Liudmila Baker [facility] HEPATIC FUNCTION PANEL 2019-10-16 02:30:00 Liudmila Baker Un [facility] ([id number]) [facility] (ALB,T.PRO,BILI T,BU/BC,ALT,AST,ALK PHOS) BASIC METABOLIC PANEL 2019-10-16 02:30:00 Liudmila Baker [facility] (NA, K, CL, CO2, Medical Branch GLUCOSE, BUN, CREATININE, CA) CBC WITH DIFF 2019-10-16 02:30:00 Liudmila Baker [facility] POCT TEST 2019-10-16 02:14:00 [facility]IS 2019-10-16 02:12:00 Liudmila Baker [facility] NOTICE OF PRIVACY 2019-10-16 00:57:28 Doctor Unassigned, No Univ [facility] PRACTICES Name [facility] CONSENT/REFUSAL FOR 2019-10-16 00:53:51 [facility] TREATMENT Encounters Start End Encounter Admission Attending Care Care Encounter Source Date/Time Date/Time Type Type Clinicians Facility Department ID 2021-01-06 Emergency [facility] [id number] [facility] [id number] [facility] 2021-08-24 Outpatient [facility] [id number] [facility] 00:00:00 00:00:00 V 2021-05-05 2021-05-05 Outpatient R JORDEN III, [facility] [id number] Univers 11:20:00 12:00:[address] [facility] 2021-05-05 2021-05-05 Outpatient [facility] [id number] Univers 11:20:00 11:20:[id number] [facility] [facility] 2021-02-03 2021-02-03 [facility] [id number] Univers 14:20:00 15:04:23 [facility] o f [facility] 2021-02-03 2021-02-03 Urgent [facility] 1.2.840.114 [id number] Univers 14:14:52 14:34:52 Care [facility] [id number] i ty of [place] 4.2.7.2.686 Moi as MARSHALL?BLEA [phone] Ri staci [address] MEDICAL OFFICE BUILDING 2021-02-03 2021-02-03 Outpatient [facility] [id number] -[id number] Univers 14:20:00 14:20:[id number] [facility] 2021-01-30 2021-01-30 Outpatient R [facility] [id number] -[id number] Univers 09:00:00 09:00:00 [id number] ity of [facility] 2021-01-30 2021-01-30 Outpatient R [facility] [id number] Univers 09:00:00 09:00:00 ity of [facility] 2021-01-29 2021-01-29 [facility] [id number] Univers 17:00:00 17:28:02 HEIDI ity of [facility] 2021-01-29 2021-01-29 Urgent Jacob Heidi [facility] 1.2.840.114 [id number] Univers 16:53:39 17:13:39 Care [facility] [id number] ity of [place] 4.2.7.2.686 Moi as MARSHALL?BLEA [phone] [facility] [address] MEDICAL OFFICE BUILDING 2021-01-29 2021-01-29 Outpatient R [facility] [id number] -[id number] Univers 17:00:00 17:00:00 [id number] ity of [facility] 2020-05-30 2020-05-30 [facility] 1.2.840.114 [id number] Univers 00:00:00 00:00:00 Shannen Springer 350.1.13.10 i [place] [phone] Ri dical nal 188 [facility] 2020-05-30 2020-05-30 Case Hilaria [facility] 1.2.840.114 [id number] Univers 00:00:00 00:00:00 Management Evette Springer 350.1.13.10 [place] [phone] Ri dical nal [address] [facility] 2020-05-30 2020-05-30 Patient Wolf [facility] 1.2.840.114 [id number] Univers 00:00:00 00:00:00 Outreach Gil BUNN 350.1.13.10 i ty of Rubens [facility] 4.2.7.2.686 Alfie FREGOSO [phone] Ri dical [address] 2020-05-09 2020-05-09 Outpatient R DORIS [facility] [id number] Univers 14:00:00 14:00:00 SHANNEN [id number] ity [facility] 2020-05-09 2020-05-09 Outpatient R DORIS [facility] [id number] Univers 14:00:00 14:00:[address] [facility] 2020-04-22 2020-04-23 Emergency ToritoNoel Candida [facility] 1.2.840. 114 [id number] Univers 10:55:00 12:55:00 Shannen George 350.1.13.10 ity of [place] 4.2.7.2.686 [facility] [phone] [facility] [address] 2020-04-22 2020-04-22 Outpatient R [facility] [id number] -[id number] Univers 13:20:00 13:20:00 [id number] ity [facility] 2020-04-22 2020-04-22 [facility] [id number] Univers 13:20:00 13:20:[address] [facility] 2020-04-22 2020-04-22 Telephone Unknown, [facility] 1.2.840.114 [id number] Univers 00:00:00 00:00:00 Attending Health 350.1.13.10 ity of Surgical 4.2.7.2.686 Moi as Specialti [phone] Ri dical es 370 [facility] 2020-04-22 2020-04-22 Orders Doctor SANGITA 1.2.840.114 [id number] Univers 00:00:00 00:00:00 Only Unassigned, LINDY 350.1.13.10 ity of [facility] 4.2.7.2.686 Moi as [phone] [facility] [address] 2019-10-15 2019-10-15 [facility] 1.2.840.114 [id number] Univers 20:10:00 22:37:00 Liudmila Springer 350.1.13.10 ity of [place] 4.2.7.2.686 [facility] [id number] [place] [id number] Branch Results Test Description Test Time Test Comments Results Result Comments Source POCT GRP A STREP (MOLECULAR) 2021-02-03 20:30:00 Test Item Value Reference Range Interpretation Comme nts POCT GP A STREP (test code = 37991-0) neg Negative - Negat meri [facility] SPECIFIC [id number] 23:05:00 Test Item Value Reference Range Interpretation Comments POCT U SP GRAV (test 1.015 mg/dl 1.005-1.025 code = 3255) POCT PH U (test code = 6 mg/dl 5-8 3254) POCT U LEUK EST (test + Negative - code = 3263) Negative POCT U NIT (test code negative Negative - = 3262) Negative POCT U PROT (test code negative Negative - = 3259) Negative POCT U GLU (test code negative Negative - = 3256) Negative POCT U KETONE (test negative Negative - code = 3258) Negative POCT U UROBILI (test normal 0.2-1 code = 3260) POCT U BILI (test code negative Negative - = 3261) Negative POCT U BLD (test code negative Negative - = 3257) Negative POCT U COLOR (test yellow code = 3266) POCT U APPEAR (test clear code = 3267) MARGARITA (test code = MARGARITA) accurate development and interpretation of all internal controls Lab Interpretation Normal (test code = 28330-8) [facility] PELVIS W [id number] 21:10:17 Acute appendicitis without evidence of drainable fluid collection orperforation. Appendix is closely related to the right ovary, which is secondarilyinflamed. Preliminary Report Dictated by Resident: Jeff Phipps MD., have reviewed this study and agree with the abovereport.EXAM: CT ABDOMEN/PELVIS WITH CONTRAST HISTORY: ? 25 years-old Female presenting with Abdominal pain, acute,nonlocalized COMPARISON: None TECHNIQUE AND FINDINGS: Contiguous axial imaging from the level of the lungbases through the proximal thighs was performed after the administration of100 cc of intravenous Omnipaque contrast. Coronal and sagittalreconstructions were obtained. ?Auto mA and/or iterative reconstructionwere used to reduce radiation dose. FINDINGS: LOWER THORAX: The lungs bases are clear. No cardiomegaly. LIVER: No focal hepatic lesions. Normal contour. GALLBLADDER AND BILIARY TREE: No biliary ductal dilation. No radiopaquecholelithiasis. No gallbladder wall thickening. SPLEEN: No splenomegaly.PANCREAS: No ductal dilation or masses. ADRENAL GLANDS: No adrenal nodules. KIDNEYS: No hydronephrosis, stones, or masses. PERITONEUM AND RETROPERITONEUM: No free air. Small amount of simple fluidis seen within the right pelvis. Layering fluid within the ftu-od-zjpwbxnmogma greater than simple fluid density is likely related to rupturedcorpus luteal cyst or ruptured hemorrhagic cyst. LYMPH NODES: No l ymphadenopathy. GI TRACT: No bowel dilation or abnormal wall thickening. Distended inflamedappendix with wall enhancement and surrounding inflammatory changes. Anappendicolith is noted within its lumen. No evidence of drainable fluidcollection or perforation. The inflamed appendix is seen within the ri ghtpelvis just superior to the right ovary. PELVIS/BLADDER: There are bladder appears unremarkable for the degree ofdistention. The uterus and left ovary appear unremarkable. Left ovariancorpus luteal cyst. Inflammatory changes surround the right ovary likelyrelated to the adjacent inflamed appendix. V ESSELS: Patent and unremarkable BONES AND SOFT TISSUES: No suspicious lytic or sclerotic bony lesions. Mnmb, Radiant Results Inft User - 04/22/2020 3:11 PM CSTEXAM: CT ABDOMEN/PELVIS WITH CONTRASTHISTORY: 25 years-old Female presenting with Abdominal pain, acute,nonlocalized COMPARISON: NoneTECHNIQUE AND FINDINGS: Contiguous axial imaging from the level of the lungbases through the proximal thighs was performed after the administration of100 cc of intravenous Omnipaque contrast. Coronal and sagittalreconstructions were obtained. Auto mA and/or iterative reconstructionwere used to reduce radiation dose.FINDINGS:LOWER THORAX: The lungs bases are clear. No cardiomegaly.LIVER: No focal hepatic lesions. Normal contour.GALLBLADDER AND BILIARY TREE: No biliary ductal dilation. No radiopaquecholelithiasis. No gallbladder wall thickening.SPLEEN: No splenomegaly.PANCREAS: No ductal dilation or masses.ADRENAL GLANDS: No adrenal nodules.KIDNEYS: No hydronephrosis, stones, or masses.PERITONEUM AND RETROPERIT ONEUM: No free air. Small amount of simple fluidis seen within the right pelvis. Layering fluid within the xta-bb-ybkscgolfqxr greater than simple fluid density is likely related to rupturedcorpus luteal cyst or ruptured hemorrhagic cyst.LYMPH NODES: No lymphadenopathy.GI TRACT: No bowel dilation or abnormal wall thickening. Distended inflamedappendix with wall enhancement and surrounding inflammatory changes. Anappendicolith is noted within its lumen. No evidence of drainable fluidcollection or perforation. The inflamed appendix is seen within the rightpelvis just superior to the right ovary.PELVIS/BLADDER: There are bladder appears unremarkable for the degree ofdistention. The uterus and left ovary appear unremarkable. Left ovariancorpus luteal cyst. Inflammatory changes surround the right ovary likelyrelated to the adjacent inflamed appendix.VESSELS: Patent and unremarkableBONES AND SOFT TISSUES: No suspicious lytic or sclerotic bony lesions.IMPRESSIONAcute appendicitis without evidence of drainable fluid collection orperforation. Appendix is closely related to the right ovary, which is secondarilyinflamed.Preliminary Report Dictated by Resident: Jefferson Steele, Jeff Busch MD., have reviewed this study and agree with the abovereport.[facility] (ID NOW RAPID TESTING)2020-04-22 20:03:00 Test Item Value Reference Range Interpretation Comments SARS-CoV-2 Rapid ID NOW Not Detected Not Detected (test code = 24375-1) MARGARITA (test code = MARGARITA) ID NOW COVID-19 Assay is an isothermal nucleic acid amplification test intended for the qualitative detection of nucleic acid from SARS-CoV-2 viral RNA in nasopharyngeal (EXPLOSIVE ORDNANCE MANAGER) specimens. It is used under Emergency Use Authorization (EUA) by FDA. The limit of detection (LOD) of the assay is 125 Genome Equivalents/mL. A positive result is indicative of the presence of SARS-CoV-2 RNA. ?Clinical correlation with patient history and other diagnostic information is necessary to determine patient infection status. A negative (Not Detected) result does not preclude SARS-CoV-2 infection. In patients with clinical symptoms and other tests that are consistent with SARS-CoV-2 infection, negative results should be treated as presumptive negative and a new specimen should be tested with alternative PCR molecular test. Invalid: Please collect a new specimen for repeat patient testing if clinically indicated. Lab Interpretation Normal (test code = 24198-0) [facility]wood[facility]inalysis2021-02-13 18:15:00 Test Item Value Reference Range Interpretation Comments APPEARANCE (test code = Hazy Clear A 1441082025) COLOR (test code = Yellow Yellow 0125590056) PH (test code = 4.8-8.0 5052386515) SP GRAVITY (test code = 1.003-1.030 0817402337) GLU U QUAL (test code = Normal Normal 5672045532) BLOOD (test code = Negative Negative 6680486361) KETONES (test code =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
[2021-11-05] MEDS ORDERED: FAMOTIDINE 20 MG/2 ML VIAL IV ONE (22:53)
[2021-11-05] MEDS ORDERED: NA CHLORIDE 0.9% 1,000 ML ONE (22:53)
[2021-11-05] MEDS ORDERED: ONDANSETRON 4 MG/2 ML VIAL ONE (22:53)
[2021-11-05 23:08] LABS: Urine Blood Negative (Negative); Urine Glucose Negative (Negative); Urine Protein Negative (Negative); Urine Specific Gravity >=1.030 (1.005-1.030); Urine pH 5.5 (5.0-7.0)
[2021-11-05 23:10] LABS: Absolute Lymphocytes (CBC) 2.9 K/uL (0.7-4.9); Lymphocytes % 27.7 % (15.3-44.8); MCV 81.8 fL (80-100); MPV 7.6 fL (7.6-11.3); RBC Red Blood Cell Count 4.77 M/uL (3.86-4.86)
[2021-11-05 23:26] LABS: Albumin 3.7 g/dL (3.4-5.0); Bilirubin Total 0.2 mg/dL (0.2-1.0); Potassium 3.5 mmol/L (3.5-5.1); Protein, Total 7.6 g/dL (6.4-8.2)
--- NOTE | 2021-11-06 00:32 | ER ---
Nurse's Notes [facility] Name: Wendy Richards Age: 26 yrs Sex: Female : 1995 Arrival Date: 11/05/2021 Time: 21:19 Bed 26 Private MD: Diagnosis: Abdominal pain, Generalized Presentation: 11/05 21:22 Chief complaint: Patient states: Pt reports bilateral lower abdominal pain that kb3 radiates into right flank. Denies urinary symptoms. Coronavirus screen: Vaccine status: Patient reports receiving the 2nd dose of the covid vaccine. Client denies travel out of the [place] in the last 14 days. At this time, the client does not indicate any symptoms associated with coronavirus-19. Ebola Screen: Patient negative for fever greater than or equal to 101.5 degrees Fahrenheit, and additional compatible Ebola Virus Disease symptoms Patient denies exposure to infectious person. Patient denies travel to an Ebola-affected area in the 21 days before illness onset. No symptoms or risks identified at this time. Initial Sepsis Screen: Does the patient meet any 2 criteria? No. Patient's initial sepsis screen is negative. Does the patient have a suspected source of infection? No. Patient's initial sepsis screen is negative. Risk Assessment: Do you want to hurt yourself or someone else? Patient reports no desire to harm self or others. Onset of symptoms was November 02, 2021. 21:22 Method Of Arrival: Ambulatory kb3 21:22 Acuity: PEEWEE 3 kb3 Triage Assessment: 21:25 General: Appears in no apparent distress. Behavior is calm, cooperative. Pain: kb3 Complains of pain in right lower quadrant and left lower quadrant Pain radiates to right low back Pain currently is 9 out of 10 on a pain scale. Quality of pain is described as aching, dull. 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 - Social history:: Smoking status: Patient denies any tobacco usage or history of. Screenin:12 Abuse screen: Denies threats or abuse. Denies injuries from another. Nutritional as6 screening: No deficits noted. Tuberculosis screening: No symptoms or risk factors identified. Fall Risk None identified. Assessment: 23:12 General: Appears in no apparent distress. Behavior is calm, cooperative. Pain: as6 Complains of pain in back and right low back and abdomen and left lower quadrant and right lower quadrant. Respiratory: Respiratory effort is even, unlabored. GI: Reports lower abdominal pain, nausea, vomiting. 11/06 01:01 Reassessment: Patient is alert, oriented x 3, equal unlabored respirations, skin bb warm/dry/pink. pt verbalized understanding of and agrees to plan of care discharge instructions given pt ambulated with steady gait to exit. Vital Signs: 11/05 21:22 BP 119 / 79; Pulse 76; Resp 18; Pulse Ox 99% ; Weight 106.59 kg; Height 5 ft. 10 in. kb3 (177.80 cm); Pain 9/10; 23:11 BP 109 / 74; Pulse 57; Resp 17 S; Pulse Ox 96% on R/A; as6 11/06 00:49 BP 124 / 75; Pulse 76; Resp 18; Temp 98.0(O); Pulse Ox 98% on R/A; wm 11/05 21:22 Body Mass Index 33.72 (106.59 kg, 177.80 cm) kb3 ED Course: 11/05 21:19 Patient arrived in ED. ag3 21:25 Triage completed. kb3 21:25 Arm band placed on right wrist. kb3 22:09 Raji Villegas MD is Attending Physician. [facility] 22:20 Antonio Braxton, KAZ is Primary Nurse. as6 23:00 Inserted saline lock: 20 gauge in right antecubital area, using aseptic technique. as6 Blood collected. 23:13 Bed in low position. Call light in reach. Side rails up X 1. Pulse ox on. NIBP on. as6 11/06 00:18 CT Abd/Pelvis - IV Contrast Only In Process Unspecified. EDMS 00:32 Kp Santamaria MD is Referral Physician. nico 01:03 Primary Nurse role handed off by Antonio Braxton, RN dale 01:03 No provider procedures requiring assistance completed. IV discontinued, intact, bb bleeding controlled, No redness/swelling at site. Pressure dressing applied. Administered Medications: 11/05 23:00 Drug: NS 0.9% 1000 ml Route: IV; Rate: 1 bolus; Site: right antecubital; 11/06 00:00 Follow up: IV Status: Completed infusion; IV Intake: 950ml 11/05 23:00 Drug: Pepcid (famotidine) 20 mg Route: IVP; Site: right antecubital; 11/06 00:00 Follow up: Response: No adverse reaction bb 11/05 23:00 Drug: Zofran (Ondansetron) 4 mg Route: IVP; Site: right antecubital; 11/06 00:00 Follow up: Response: No adverse reaction bb Medication: 01:03 VIS not applicable for this client. bb Intake: 00:00 IV: 950ml; Total: 950ml. bb Outcome: 00:32 Discharge ordered by . nico 01:03 Discharged to home ambulatory. bb 01:03 Condition: stable 01:03 Discharge instructions given to patient, Instructed on discharge instructions, follow up and referral plans. medication usage, Demonstrated understanding of instructions, follow-up care, medications, Prescriptions given X 3. 01:03 Patient left the ED. bb 01:05 Patient left the ED. wm Signatures: Dispatcher [employer] EDRaji Hartmann MD MD cha Ballard, Brenda, RN RN Amanda Lizarraga Wendy Antonio Braxton RN RN as6 Mónica Kelley RN RN kb3
--- NOTE | 2021-11-06 00:33 | EDPHYS ---
Physician Documentation [facility] Name: Wendy Richards Age: 26 yrs Sex: Female : 1995 Arrival Date: 11/05/2021 Time: 21:19 Bed 26 Private MD: ED Physician Raji Villegas HPI: 11/05 22:30 This 26 yrs old Female presents to ER via Ambulatory with complaints of nico Abdominal Pain, Low Back Pain. 22:30 The patient presents with pain that is acute, with no known mechanism of injury. The nico symptoms are located in the low back. 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 - Social history:: Smoking status: Patient denies any tobacco usage or history of. ROS: 22:30 Constitutional: Negative for fever, chills, and weight loss, Eyes: Negative for injury, nico pain, redness, and discharge, ENT: Negative for injury, pain, and discharge, Neck: Negative for injury, pain, and swelling, Cardiovascular: Negative for chest pain, palpitations, and edema, Respiratory: Negative for shortness of breath, cough, wheezing, and pleuritic chest pain, Back: Negative for injury and pain, : Negative for injury, bleeding, discharge, and swelling, MS/Extremity: Negative for injury and deformity, Skin: Negative for injury, rash, and discoloration, Neuro: Negative for headache, weakness, numbness, tingling, and seizure, Psych: Negative for depression, anxiety, suicide ideation, homicidal ideation, and hallucinations, Allergy/Immunology: Negative for hives, rash, and allergies, Endocrine: Negative for neck swelling, polydipsia, polyuria, polyphagia, and marked weight changes, Hematologic/Lymphatic: Negative for swollen nodes, abnormal bleeding, and unusual bruising. 22:30 Abdomen/GI: Positive for abdominal pain, nausea, abdominal cramps. 22:30 Back: Positive for pain at rest, flank pain, on the right. Exam: 22:30 Constitutional: This is a well developed, well nourished patient who is awake, alert, nico and in no acute distress. Head/Face: Normocephalic, atraumatic. Eyes: Pupils equal round and reactive to light, extra-ocular motions intact. Lids and lashes normal. Conjunctiva and sclera are non-icteric and not injected. Cornea within normal limits. Periorbital areas with no swelling, redness, or edema. ENT: Nares patent. No nasal discharge, no septal abnormalities noted. Tympanic membranes are normal and external auditory canals are clear. Oropharynx with no redness, swelling, or masses, exudates, or evidence of obstruction, uvula midline. Mucous membranes moist. Neck: Trachea midline, no thyromegaly or masses palpated, and no cervical lymphadenopathy. Supple, full range of motion without nuchal rigidity, or vertebral point tenderness. No Meningismus. Chest/axilla: Normal chest wall appearance and motion. Nontender with no deformity. No lesions are appreciated. Cardiovascular: Regular rate and rhythm with a normal S1 and S2. No gallops, murmurs, or rubs. Normal PMI, no JVD. No pulse deficits. Respiratory: Lungs have equal breath sounds bilaterally, clear to auscultation and percussion. No rales, rhonchi or wheezes noted. No increased work of breathing, no retractions or nasal flaring. Abdomen/GI: Soft, non-tender, with normal bowel sounds. No distension or tympany. No guarding or rebound. No evidence of tenderness throughout. Back: No spinal tenderness. No costovertebral tenderness. Full range of motion. Skin: Warm, dry with normal turgor. Normal color with no rashes, no lesions, and no evidence of cellulitis. MS/ Extremity: Pulses equal, no cyanosis. Neurovascular intact. Full, normal range of motion. Neuro: Awake and alert, GCS 15, oriented to person, place, time, and situation. Cranial nerves II-XII grossly intact. Motor strength 5/5 in all extremities. Sensory grossly intact. Cerebellar exam normal. Normal gait. Psych: Awake, alert, with orientation to person, place and time. Behavior, mood, and affect are within normal limits. Vital Signs: 21:22 BP 119 / 79; Pulse 76; Resp 18; Pulse Ox 99% ; Weight 106.59 kg; Height 5 ft. 10 in. kb3 (177.80 cm); Pain 9/10; 23:11 BP 109 / 74; Pulse 57; Resp 17 S; Pulse Ox 96% on R/A; as6 11/06 00:49 BP 124 / 75; Pulse 76; Resp 18; Temp 98.0(O); Pulse Ox 98% on R/A; 11/05 21:22 Body Mass Index 33.72 (106.59 kg, 177.80 cm) kb3 MDM: 11/05 22:09 Patient medically screened. [facility] 22:31 Differential diagnosis: UTI, cholecystitis, Cholelithiasis, diverticulitis. Data nico reviewed: vital signs, nurses notes, lab test result(s), radiologic studies, CT scan, plain films. Data interpreted: hospital monitor: rate is 76 beats/min, rhythm is regular, Pulse oximetry: on room air is 99 %. Test interpretation: by ED physician or midlevel provider: ECG, plain radiologic studies. Counseling: I had a detailed discussion with the patient and/or guardian regarding: the historical points, exam findings, and any diagnostic results supporting the discharge/admit diagnosis, lab results, radiology results. 11/05 22:30 Order name: CBC with Diff; Complete Time: 23:49 [facility] 11/05 22:30 Order name: CMP; Complete Time: 23:49 [facility] 11/05 22:30 Order name: Lipase; Complete Time: 23:49 [facility] 11/05 22:30 Order name: CT Abd/Pelvis - IV Contrast Only [facility] 11/05 23:08 Order name: Urine Dipstick-Ancillary; Complete Time: 23:49 EDMD 11/05 22:30 Order name: IV Saline Lock; Complete Time: 23:10 [facility] 11/05 22:30 Order name: Labs collected and sent; Complete Time: 23:11 [facility] 11/05 22:30 Order name: Urine Dipstick-Ancillary (obtain specimen); Complete Time: 23:11 [facility] 11/05 22:30 Order name: Urine Test (obtain specimen); Complete Time: 23:11 [facility] Administered Medications: 23:00 Drug: NS 0.9% 1000 ml Route: IV; Rate: 1 bolus; Site: right antecubital; 11/06 00:00 Follow up: IV Status: Completed infusion; IV Intake: 950ml 11/05 23:00 Drug: Pepcid (famotidine) 20 mg Route: IVP; Site: right antecubital; 11/06 00:00 Follow up: Response: No adverse reaction 11/05 23:00 Drug: Zofran (Ondansetron) 4 mg Route: IVP; Site: right antecubital; 11/06 00:00 Follow up: Response: No adverse reaction Disposition Summary: 11/06/21 00:32 Discharge Ordered Location: Home nico Problem: new nico Symptoms: have improved nico Condition: Stable nico Diagnosis - Abdominal pain, Generalized nico Followup: nico - With: Private Physician - When: 2 - 3 days - Reason: Recheck today's complaints, Continuance of care, Re-evaluation by your physician Followup: nico - With: Kp Santamaria MD - When: 2 - 3 days - Reason: Recheck today's complaints, Continuance of care, Re-evaluation by your physician Discharge Instructions: - Discharge Summary Sheet nico - Abdominal Pain, Adult nico - Abdominal Pain, Adult, [id number] [facility] Forms: - Medication Reconciliation Form [facility] - Thank You Letter nico - Antibiotic Education nico - Prescription Opioid Use nico - Work release form Prescriptions: - Pepcid 20 mg Oral Tablet - take 1 tablet by ORAL route every 12 hours for 10 days; 20 tablet; Refills: 0, [facility] Product Selection Permitted - Zofran 4 mg Oral Tablet - take 1 tablet by ORAL route every 12 hours As needed; 20 tablet; Refills: 0, [facility] Product Selection Permitted - dicyclomine 20 mg Oral Tablet - take 1 tablet by ORAL route 4 times per day; 28 tablet; Refills: 0, Product [facility] Selection Permitted Signatures: Dispatcher [employer] Raji Garcia MD MD cha Slawson, Ashby RN RN as6 Mónica Kelley RN RN [email or web address] Blossom Ellsworth RN dale
[2021-11-06 03:25] VITALS: BP 124/75; TEMP 98; O2SAT 98
--- NOTE | 2021-11-06 17:55 | RAD REPORT ---
EXAM DESCRIPTION: CT - Abdomen Pelvis W Contrast - 11/06/2021 6:38 am CLINICAL HISTORY: The patient is 26 years old and is Female; Abdominal pain, acute, nonlocalized TECHNIQUE: Axial computed tomography images of the abdomen and pelvis with intravenous contrast. S agittal and coronal reformatted images were created and reviewed. This CT exam was performed using one or more of the following dose reduction techniques: automated exposure control, adjustment of t he mA and/or kV according to patient size, and/or use of iterative reconstruction technique. DLP: 2490 mGy*cm COMPARISON: None. FINDINGS: LUNG BASES: Lung bases are clear. HEART: Visualized heart is normal. ABDOMEN: LIVER: Unremarkable. No mass. GALLBLADDER AND BILE DUCTS: Unremarkable. No calcified stones. No ductal dilation. PANCREAS: Unremarkable. No mass. No ductal dilation. SPLEEN: Unremarkable. No splenomegaly. ADRENALS: Unremarkable. No mass. KIDNEYS AND URETERS: Unremarkable. No solid mass. No hydronephrosis. STOMACH AND BOWEL: Unremarkable. No obstruction. No mucosal thickening. PELVIS: APPENDIX: Prior appendectomy. BLADDER: Bladder is decompressed. REPRODUCTIVE: Unremarkable as visualized. ABDOMEN and PELVIS: INTRAPERITONEAL SPACE: Unremarkable. No free air. No significant fluid collection. BONES/JOINTS: L5-S1 degenerative changes. No acute fracture. No dislocation. SOFT TISSUES: Unremarkable. VASCULATURE: Unremarkable. No abdominal aortic aneurysm. LYMPH NODES: Unremarkable. No enlarged lymph nodes. IMPRESSION: No acute abdominal or pelvic abnormality. Electronically signed by: Desmond Mccarty DO 11/06/2021 12:20 AM CDT Due to temporary technical issues with the PACS/Fluency reporting system, reports are being signed by the in house radiologists without review as a courtesy to insure prompt reporting. The interpreting radiologist is fully responsible for the content of the report.
== END 2021-11-06 01:05 | disposition home or self-care (01) ==
LOC: ER 21:13
DX: R10.84 Generalized abdominal pain (principal); M54.50 Low back pain, unspecified
CPT/HCPCS: 85025; 36415; 81003; 83690; 80053; 74177; Q9967; J7030; J2405

== ENCOUNTER 2022-02-26 00:18 | Emergency (ER) | payer BC ==
[2022-02-26 01:02] LABS: Urine Blood 2+ (Negative); Urine Glucose Negative (Negative); Urine Protein Negative (Negative); Urine Specific Gravity >=1.030 (1.005-1.030); Urine pH 5.5 (5.0-7.0)
[2022-02-26] MEDS ORDERED: KETOROLAC 30 MG/ML INJ ONE (01:04)
[2022-02-26 01:22] LABS: Absolute Lymphocytes (CBC) 2.7 K/uL (0.7-4.9); Hematocrit 38.1 % (36.0-45.0); MCV 82.5 fL (80-100); MPV 7.6 fL (7.6-11.3); RBC Red Blood Cell Count 4.62 M/uL (3.86-4.86)
[2022-02-26 01:25] LABS: Protime INR 1.07
[2022-02-26 01:31] LABS: Urine Specific Gravity/Preg >1.030 (1.005-1.030)
[2022-02-26 01:34] LABS: Barbiturates NEGATIVE (NEGATIVE); Benzodiazepines NEGATIVE (NEGATIVE); Cocaine NEGATIVE (NEGATIVE); METHAMPHETAM NEGATIVE (NEGATIVE); Methadone NEGATIVE (NEGATIVE); Opiates NEGATIVE (NEGATIVE); Phencyclidine NEGATIVE (NEGATIVE); THC Cannibis NEGATIVE (NEGATIVE)
[2022-02-26 01:37] LABS: Albumin 3.5 g/dL (3.4-5.0); Bilirubin Direct 0.1 mg/dL (0-0.2); Bilirubin Total 0.4 mg/dL (0.2-1.0); Magnesium 2.1 mg/dL (1.6-2.4); Potassium 3.2 mmol/L (3.5-5.1); Protein, Total 7.3 g/dL (6.4-8.2); Troponin High Sensitivity 13.3 pg/mL (<58.9)
[2022-02-26] MEDS ORDERED: POTASSIUM 25 MEQ EFFERV TAB ONE (03:02)
--- NOTE | 2022-02-26 03:03 | EDPHYS ---
Physician Documentation [facility] Name: Wendy Richards Age: 27 yrs Sex: Female : 1995 Arrival Date: 02/26/2022 Time: 00:21 Bed 8 Private MD: ED Physician Duarte Bustos HPI: 02/26 00:45 This 27 yrs old Female presents to ER via Ambulatory with complaints of Chest Pain. cp 00:45 The patient or guardian reports chest pain that is located primarily in the anterior cp chest wall, mid chest. The pain does not radiate. Associated signs and symptoms: Pertinent positives: shortness of breath. 00:45 The chest pain is described as a pressure. cp 00:45 Duration: The patient or guardian reports a single episode, that is still ongoing, and cp unchanged. Modifying factors: the symptoms are aggravated by deep breath. 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 - Social history:: Smoking status: Reported history of juuling and/or vaping. ROS: 00:50 Constitutional: Negative for body aches, chills, fever, poor PO intake. cp 00:50 Eyes: Negative for injury, pain, redness, and discharge. cp 00:50 Cardiovascular: Positive for chest pain, Negative for edema, palpitations. cp 00:50 ENT: Negative for drainage from ear(s), ear pain, sore throat, difficulty swallowing, cp difficulty handling secretions. 00:50 Respiratory: Negative for cough, shortness of breath, wheezing. 00:50 Abdomen/GI: Negative for abdominal pain, nausea, vomiting, and diarrhea, constipation. 00:50 Back: Negative for pain at rest, pain with movement, radiated pain. 00:50 : Negative for urinary symptoms. 00:50 Neuro: Negative for altered mental status, dizziness, headache, numbness, syncope, weakness. 00:50 All other systems are negative. Exam: 00:40 ECG was reviewed by the Attending Physician. cp 00:55 Constitutional: The patient appears in no acute distress, alert, awake, cp non-diaphoretic, non-toxic, well developed, well nourished, obese. 00:55 Head/Face: Normocephalic, atraumatic. cp 00:55 Eyes: Periorbital structures: appear normal, Conjunctiva: normal, no exudate, no injection, Sclera: no appreciated abnormality, Lids and lashes: appear normal, bilaterally. 00:55 ENT: External ear(s): are unremarkable, Nose: is normal, Mouth: Lips: moist, Oral mucosa: moist, Posterior pharynx: Airway: no evidence of obstruction, patent. 00:55 Neck: ROM/movement: is normal, is supple, without pain, no range of motions limitations, no meningismus. 00:55 Chest/axilla: Inspection: normal. 00:55 Cardiovascular: Rate: normal, Rhythm: regular, Edema: is not appreciated, JVD: is not appreciated. 00:55 Respiratory: the patient does not display signs of respiratory distress, Respirations: normal, no use of accessory muscles, no retractions, labored breathing, is not present, Breath sounds: are clear throughout, no decreased breath sounds, no stridor, no wheezing. 00:55 Abdomen/GI: Inspection: abdomen appears normal, Palpation: abdomen is soft and non-tender, in all quadrants. Vital Signs: 00:33 BP 121 / 86; Pulse 96; Resp 18; Pulse Ox 99% on R/A; Weight 104.33 kg; Height 5 ft. 10 kl in. (177.80 cm); Pain 10/10; 01:30 BP 101 / 73; Pulse 62; Resp 20 S; Pulse Ox 99% on R/A; aa9 00:33 Body Mass Index 33.00 (104.33 kg, 177.80 cm) kl MDM: 00:23 Patient medically screened. cp 01:00 Differential diagnosis: acute myocardial infarction, acute pericarditis, anxiety, chest cp wall pain, cholecystitis, Cholelithiasis costochondritis, pericarditis, pleurisy, pneumonia, pneumothorax, pulmonary embolus. 02:56 Data reviewed: vital signs, nurses notes, lab test result(s), EKG, radiologic studies, cp CT scan, plain films, and as a result, I will discharge patient. 02:56 Test interpretation: by ED physician or midlevel provider: ECG, plain radiologic cp studies. 02:56 Counseling: I had a detailed discussion with the patient and/or guardian regarding: the cp historical points, exam findings, and any diagnostic results supporting the discharge/admit diagnosis, lab results, radiology results, to return to the emergency department if symptoms worsen or persist or if there are any questions or concerns that arise at home. Response to treatment: the patient's symptoms have markedly improved after treatment. Special discussion: Based on the patient's history, exam, and Dx evaluation, there is no indication for emergent intervention or inpatient Tx. It is understood by the patient/guardian that if the Sx's persist or worsen they need to return immediately for re-evaluation. 02/26 00:43 Order name: Basic Metabolic Panel; Complete Time: : 02/26 01:54 Interpretation: Normal except: K 3.2; GLUC 108. 02/26 00:43 Order name: CBC with Diff; Complete Time: : 02/26 01:26 Interpretation: Reviewed. 02/26 00:43 Order name: D-Dimer; Complete Time: cp 02/26 01:55 Interpretation: Abnormal: D-DIMER 550. 02/26 00:43 Order name: LFT's; Complete Time: : cp 02/26 01:55 Interpretation: Normal except: AST 73; ALT 66; GLOB 3.8; A/G 0.9. 02/26 00:43 Order name: Magnesium; Complete Time: :54 cp 02/26 00:43 Order name: PT-INR; Complete Time: : cp 02/26 00:43 Order name: Troponin HS; Complete Time: : cp 02/26 00:43 Order name: XRAY Chest (1 view) 02/26 00:43 Order name: UDS; Complete Time: : cp 02/26 01:55 Interpretation: Reviewed. 02/26 01:02 Order name: Urine Dipstick-Ancillary; Complete Time: : EDMS 02/26 01:26 Interpretation: Normal except: UKET Trace; UBLD 2+. 02/26 01:02 Order name: Urine --Ancillary (enter results); Complete Time: :54 wm 02/26 01:27 Order name: CT Chest For PE Angio 02/26 01:56 Order name: US Abdomen Limited: gallbladder cp 02/26 00:43 Order name: EKG; Complete Time: 00:43 cp 02/26 00:43 Order name: Cardiac monitoring; Complete Time: 00:43 cp 02/26 00:43 Order name: EKG - Nurse/Tech; Complete Time: 00:43 cp 02/26 00:43 Order name: IV Saline Lock; Complete Time: 01: cp 02/26 00:43 Order name: Labs collected and sent; Complete Time: : cp 02/26 00:43 Order name: O2 Per Protocol; Complete Time: 00:43 cp 02/26 00:43 Order name: O2 Sat Monitoring; Complete Time: 00:43 cp 02/26 00:43 Order name: Urine Dipstick-Ancillary (obtain specimen); Complete Time: : cp 02/26 00:43 Order name: Urine Test (obtain specimen); Complete Time: : cp EC:40 Rate is 60 beats/min. Rhythm is regular. NM interval is normal. QRS interval is normal. cp QT interval is normal. T waves are Inverted in lead aVR. Interpreted by me. Reviewed by me. Administered Medications: 01:07 Drug: Ketorolac 15 mg Route: IVP; Site: right antecubital; aa9 03:21 Follow up: Response: No adverse reaction aa9 03:10 Drug: Potassium Effervescent Tablet 50 mEq Route: PO; jb4 03:21 Follow up: Response: No adverse reaction aa9 Disposition: 04:27 Co-signature as Attending Physician, Duarte Bustos MD. rn Disposition Summary: 02/26/22 03:03 Discharge Ordered Location: Home cp Problem: new cp Symptoms: have improved cp Condition: Stable cp Diagnosis - Chest pain, unspecified cp Followup: cp - With: Private Physician - When: 2 - 3 days - Reason: Recheck today's complaints Discharge Instructions: - Discharge Summary Sheet cp - Nonspecific Chest Pain, Adult cp Forms: - Medication Reconciliation Form cp - Thank You Letter cp - Antibiotic Education cp - Prescription Opioid Use cp Prescriptions: - Diclofenac Sodium 75 mg Oral tablet,delayed release (DR/EC) - take 1 tablet by ORAL route 2 times per day; 20 tablet; Refills: 0, Product cp Selection Permitted Signatures: Dispatcher [facility] Shama Chávez, RN RN Duarte Hayward MD MD rn Page, Corey, PA PA cp Lee Villatoro RN RN jb4 Tabitha Uriostegui RN RN aa9 Corrections: (The following items were deleted from the chart) 00:47 00:44 This 27 yrs old Female presents to ER via Ambulatory with complaints of Chest cp Pain. cp
--- NOTE | 2022-02-26 03:03 | ER ---
Nurse's Notes [facility] Name: Wendy Richards Age: 27 yrs Sex: Female : 1995 Arrival Date: 02/26/2022 Time: 00:21 Bed 8 Private MD: Diagnosis: Chest pain, unspecified Presentation: 02/26 00:33 Chief complaint: Patient states: chest tightness and pressure all day worse when laying kl down also reports SOB. Coronavirus screen: Vaccine status: Patient reports receiving the 2nd dose of the covid vaccine. Ebola Screen: Patient negative for fever greater than or equal to 101.5 degrees Fahrenheit, and additional compatible Ebola Virus Disease symptoms. Initial Sepsis Screen: Does the patient meet any 2 criteria? No. Patient's initial sepsis screen is negative. Does the patient have a suspected source of infection? No. Patient's initial sepsis screen is negative. Risk Assessment: Do you want to hurt yourself or someone else? Patient reports no desire to harm self or others. 00:33 Method Of Arrival: Ambulatory kl 00:33 Acuity: PEEWEE 3 kl Triage Assessment: 00:35 General: Appears uncomfortable, Behavior is flat. Pain: Complains of pain in chest. kl Cardiovascular: Reports chest pain, shortness of breath. 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 - Social history:: Smoking status: Reported history of juuling and/or vaping. Screenin:37 [facility] ED Fall Risk Assessment (Adult) History of falling in the last 3 months, aa9 including since admission No falls in past 3 months (0 pts) Confusion or Disorientation No (0 pts) Intoxicated or Sedated No (0 pts) Impaired Gait No (0 pts) Mobility Assist Device Used No (0 pt) Altered Elimination No (0 pt) Score/Fall Risk Level 0 - 2 = Low Risk Oriented to surroundings, Maintained a safe environment. Abuse screen: Denies threats or abuse. Denies injuries from another. Nutritional screening: No deficits noted. Tuberculosis screening: No symptoms or risk factors identified. Fall Risk No fall in past 12 months (0 pts). No secondary diagnosis (0 pts). IV access (20 points). Ambulatory Aid- None/Bed Rest/Nurse Assist (0 pts). Gait- Normal/Bed Rest/Wheelchair (0 pts) Mental Status- Oriented to own ability (0 pts). Total Lockhart Fall Scale indicates No Risk (0-24 pts). 03:19 Humpty Dumpty Scale Fall Assessment Tool (age< 18yrs) Age 13 years and above (1 pt) aa9 Gender Female (1 pt) Diagnosis Other diagnosis (1 pt) Cognitive Impairments Oriented to own ability (1 pt) Environmental Factors Outpatient area (1 pt) Response to Surgery/Sedation/Anesthesia More than 48 hours/ None (1 pt) Medication Usage Other medications/ None (1 pt) Fall Risk Score/ Level Low Fall Risk: </= 11 points Oriented to surroundings, Maintained a safe environment: Age specific bed with railing, Bed in low position\T\ wheels locked, Assess need for siderail use, Locks on, Rm \T\ paths clutter \T\ obstacle free, Proper lighting, Call light, personal item w/in reach, Alarms as needed. Assessment: 00:36 General: Appears in no apparent distress. comfortable, Behavior is calm, cooperative, aa9 appropriate for age. Pain: Complains of pain in chest Pain does not radiate. Pain began suddenly, Also complains of shortness of breath. Neuro: Level of Consciousness is awake, alert, obeys commands, Oriented to person, place, time, situation. Cardiovascular: Patient's skin is warm and dry. Rhythm is regular Parent/caregiver reports patient has had chest pain, shortness of breath. Respiratory: Airway. GI: No signs and/or symptoms were reported involving the gastrointestinal system. : No signs and/or symptoms were reported regarding the genitourinary system. Derm: Skin is intact, is healthy with good turgor. 01:08 Reassessment: Patient appears in no apparent distress at this time. Patient and/or aa9 family updated on plan of care and expected duration. Pain level reassessed. Patient is alert, oriented x 3, equal unlabored respirations, skin warm/dry/pink. Vital Signs: 00:33 BP 121 / 86; Pulse 96; Resp 18; Pulse Ox 99% on R/A; Weight 104.33 kg; Height 5 ft. 10 kl in. (177.80 cm); Pain 10/10; 01:30 BP 101 / 73; Pulse 62; Resp 20 S; Pulse Ox 99% on R/A; aa9 00:33 Body Mass Index 33.00 (104.33 kg, 177.80 cm) ED Course: 00:21 Patient arrived in ED. bp1 00:22 Raji Mario PA is PHCP. cp 00:22 Duarte Bustos MD is Attending Physician. cp 00:34 Triage completed. kl 00:36 Tabitha Uriostegui, KAZ is Primary Nurse. aa9 00:36 No apparent distress. aa9 00:36 Patient has correct armband on for positive identification. Bed in low position. Call aa9 light in reach. Client placed on continuous cardiac and pulse oximetry monitoring. NIBP monitoring applied. 01:00 Inserted saline lock: 20 gauge in right antecubital area, using aseptic technique. aa9 Blood collected. 01:00 No provider procedures requiring assistance completed. Patient maintains SpO2 aa9 saturation greater than 95% on room air. 01:02 UDS Sent. aa9 01:02 Basic Metabolic Panel Sent. aa9 01:02 CBC with Diff Sent. aa9 01:02 Troponin HS Sent. aa9 01:02 PT-INR Sent. aa9 01:02 Magnesium Sent. aa9 01:02 LFT's Sent. aa9 01:02 D-Dimer Sent. aa9 01:06 XRAY Chest (1 view) In Process Unspecified. EDMS 01:26 Notified Nurse Practitioner and/or Physician Cooler Tender of a critical lab result(s), D kl Dimer [facility] notified . 02:04 CT Chest For PE Angio In Process Unspecified. EDMS 02:40 US Abdomen Limited: gallbladder In Process Unspecified. EDMS 03:19 Arm band placed on. aa9 03:19 IV discontinued, intact, bleeding controlled, No redness/swelling at site. Pressure aa9 dressing applied. Administered Medications: 01:07 Drug: Ketorolac 15 mg Route: IVP; Site: right antecubital; aa9 03:21 Follow up: Response: No adverse reaction aa9 03:10 Drug: Potassium Effervescent Tablet 50 mEq Route: PO; jb4 03:21 Follow up: Response: No adverse reaction aa9 Medication: 01:08 VIS not applicable for this client. aa9 Outcome: 03:03 Discharge ordered by . cresencio 03:18 Discharged to home ambulatory. aa9 03:18 Condition: stable 03:18 Discharge instructions given to patient, Instructed on discharge instructions, follow up and referral plans. Demonstrated understanding of instructions, follow-up care, medications, Prescriptions given X 1. 03:19 Patient left the ED. aa9 Signatures: Dispatcher [employer] EDMS Shama Juarez, RN RN Raji Marte PA PA Lee Payne RN RN jb4 Sharron oYst Aylin, RN RN aa9
[2022-02-26 03:34] VITALS: O2SAT 99
[2022-02-26 03:39] VITALS: BP 101/73
--- NOTE | 2022-02-26 14:21 | RAD REPORT ---
EXAM DESCRIPTION: RAD - Chest Single View - 02/26/2022 1:04 am CLINICAL HISTORY: 27 years Female, CHEST PAIN COMPARISON: None. TECHNIQUE: Single portable x-ray view of the chest performed on 02/26/2022 at 12:59 AM FINDINGS: The lungs are well expanded and are clear. There is no evidence of a pneumothorax. A small opacity projects over the posterior right fifth rib likely related to artifact from an overlying car diac monitor lead. The cardiac silhouette is normal in size and configuration. The mediastinal contours are normal. No acute osseous abnormality is identified. No acute soft tissue abnormalities are seen. Lines and tubes: There are overlying monitor technician leads. Free air: None IMPRESSION: No evidence of acute intrathoracic disease. A small opacity projects over the posterior right fifth rib likely related to artifact from an overlying monitor technician lead. Consider repositio frederick the lead and repeat imaging. Electronically signed by: Norma Garduno DO 02/26/2022 1:21 AM CREATIVE SERVICES MANAGER Due to temporary technical issues with the PACS/Fluency reporting system, reports are being signed by the in house radiologists without review as a courtesy to insure prompt reporting. The interpreting radiologist is fully responsible for the content of the report.
--- NOTE | 2022-02-26 14:23 | RAD REPORT ---
EXAM DESCRIPTION: US - Abdomen Exam Limited - 02/26/2022 2:39 am CLINICAL HISTORY: 27 years, Female, elevated liver enzymes COMPARISON: None. TECHNIQUE: Utilizing a curved array transducer, real-time ultrasound evaluation of the abdominal vis cera was performed. Color Doppler imaging was used to assess vascular flow. FINDINGS: The liver is normal in size measuring 16.1 cm. Increased echo pattern was identified. No focal areas of increased or decreased echogenicity was seen. The portal flow is hetopedal with no signs of vein thrombosis. The gallbladder demonstrate to be within normal limits. No gallbladder stones were seen. No peric holecystic fluid and or wall thickening was identified. The common bile duct measures 3.1 mm. No intra or extrahepatic biliary duct dilatation was identified. The pancreas head in the mid body demonstrate to be unremarkable with no focal lesions. The spleen measures 11.5 cm and demonstrate no focal lesions. Right kidney demonstrate to be unremarkable. There is no evidence for free fluid within the upper abdomen. IMPRESSION: Increased echogenicity of the liver consistent with fatty infiltration. Otherwise unremarkable abdominal ultrasound. Electronically signed by: Felipe Vallejo MD 02/26/2022 2:59 AM RAILROAD SIGNAL TECHNICIAN Due to temporary technical issues with the PACS/Fluency reporting system, reports are being signed by the in house radiologists without review as a courtesy to insure prompt reporting. The interpreting radiologist is fully responsible for the content of the report.
--- NOTE | 2022-02-26 14:29 | RAD REPORT ---
EXAM DESCRIPTION: CT - Chest For Pe Angio - 02/26/2022 6:49 am CLINICAL HISTORY: 27 years Female chest pain COMPARISON: Chest x-ray 02/26/2022. TECHNIQUE: Intravenous low osmolar contrast. Coronal and sagittal reformations including 3D maximu m intensity projections. This exam was performed according to our departmental dose-optimization program, which includes autom ated exposure control, adjustment of the mA and/or kV according to patient size and/or use of iterati ve reconstruction technique. FINDINGS: PULMONARY ARTERIAL SYSTEM: Contrast bolus is adequate. No CT evidence for pulmonary emb olism. CARDIAC: Normal. AORTA/VASCULAR: No aneurysm. LYMPH NODES/MEDIASTINUM: No thoracic adenopathy. CENTRAL AIRWAYS: Central airways are patent. LUNGS: No focal consolidation. Minimal bilateral dependent reticular opacities, likely atelectasis. PLEURA: Normal. ESOPHAGUS: Collapsed and not well assessed by CT, without obvious abnormality. THYROID: Negative, where seen. CHEST WALL: Normal. UPPER ABDOMEN: No acute findings. THORACIC SKELETAL: No acute finding. ADDITIONAL CHEST FINDINGS: None. IMPRESSION: 1. No evidence of acute pulmonary embolus. 2. No acute thoracic findings. Electronically signed by: Monalisa Araiza MD 02/26/2022 2:23 AM FACILITATOR Due to temporary technical issues with the PACS/Fluency reporting system, reports are being signed by the in house radiologists without review as a courtesy to insure prompt reporting. The interpreting radiologist is fully responsible for the content of the report.
--- NOTE | 2022-02-26 15:15 | EKG ---
Test Date: 2022-02-26 Test Time: 00:32:57 Garage Attendant: TRISTEN MEASUREMENT RESULTS: Intervals: Rate: 60 CA: 134 QRSD: 82 QT: 412 QTc: 412 [place]: P: 4 CA: 134 QRS: 38 T: 23 INTERPRETIVE STATEMENTS: Normal sinus rhythm Normal ECG No previous ECG available for comparison Electronically Signed On 02-26-22 15:14:33 CLEANER GREASER by [employer]
== END 2022-02-26 03:19 | disposition home or self-care (01) ==
LOC: ER 00:18
DX: R07.89 Other chest pain (principal)
CPT/HCPCS: 93005; 85025; 80048; 36415; 83735; 81025; 85610; 85379; 80076; 81003; 84484; 80307; 71275; 71045; 76705; Q9967; 96374; 99284

== ENCOUNTER 2022-05-05 19:00 | Emergency (ER) | payer BC ==
[2022-05-05 20:41] LABS: SARS-COV-2 RT PCR NEGATIVE (NEGATIVE)
[2022-05-05 21:21] LABS: Urine Blood Negative (Negative); Urine Glucose Negative (Negative); Urine Protein Negative (Negative); Urine pH 6.5 (5.0-7.0)
[2022-05-05 21:46] LABS: Transitional Epithelial <5 /HPF (None Seen); Urine Bacteria <20 /HPF (<20); Urine RBC <5 /HPF (None Seen)
--- NOTE | 2022-05-05 21:48 | EDPHYS ---
Physician Documentation [facility] Name: Wendy Richards Age: 27 yrs Sex: Female : 1995 Arrival Date: 05/05/2022 Time: 19:03 Bed 9 Private MD: ED Physician Duarte Bustos HPI: 05/05 19:25 This 27 yrs old Female presents to ER via Ambulatory with complaints of Flu Symptoms. cp 19:25 The patient or guardian reports nasal congestion, slight cough, rhinorrhea, body aches, cp sore throat. Onset: The symptoms/episode began/occurred this past Friday night. 19:25 Associated signs and symptoms: Pertinent negatives: diarrhea, fever, vomiting, cp abdominal and/or pelvic pain. 19:25 Severity of symptoms: in the emergency department the symptoms are unchanged despite cp home interventions. Patient reports taking home COVID-19 test that was negative. Patient reports concern about symptoms being due to gonorrhea infection. Patient reports testing positive this past Friday after being checked last week. Reports started oral antibiotics Metronidazole and Doxycycline this past Friday and being told to f/u tomorrow for shot of antibiotics. Patient denies abdominal and/or pelvic pain at this time. NAILER HAND: 19:13 LMP 04/12/2022 ll3 Historical: - Allergies: 19:13 No Known Allergies; ll3 - Home Meds: 19:13 Doxycycline Oral [Active]; Flagyl Oral [Active]; ll3 - PMHx: 19:13 None; ll3 - PSHx: 19:13 Appendectomy; Tonsillectomy; ll3 - Immunization history:: Client reports receiving the 2nd dose of the Covid vaccine. - Social history:: Smoking status: Patient denies any tobacco usage or history of. ROS: 19:30 Constitutional: Positive for body aches, Negative for fever, poor PO intake. cp 19:30 Cardiovascular: Negative for chest pain. 19:30 Eyes: Negative for injury, pain, redness, and discharge. cp 19:30 ENT: Positive for nasal congestion, Negative for ear pain, difficulty swallowing, difficulty handling secretions. 19:30 Respiratory: Positive for cough, shortness of breath, Negative for wheezing. 19:30 Abdomen/GI: Negative for abdominal pain, vomiting, diarrhea, constipation. 19:30 : Negative for urinary symptoms, hematuria, pelvic pain. 19:30 Neuro: Negative for altered mental status, weakness. 19:30 All other systems are negative. Exam: 19:33 Constitutional: The patient appears in no acute distress, alert, awake, non-toxic, well cp developed, well nourished. 19:33 Head/Face: Normocephalic, atraumatic. cp 19:33 Eyes: Periorbital structures: appear normal, Conjunctiva: normal, no exudate, no injection, Sclera: no appreciated abnormality, Lids and lashes: appear normal, bilaterally. 19:33 ENT: External ear(s): are unremarkable, Ear canal(s): are normal, clear, TM's: bulging, is not appreciated, bilaterally, dullness, bilaterally, erythema, is not appreciated, bilaterally, Nose: nasal drainage, that is minimal, that is clear, Mouth: Lips: moist, Oral mucosa: moist, Posterior pharynx: Airway: no evidence of obstruction, patent, Tonsils: no enlargement, no exudate, swelling, is not appreciated, erythema, that is mild, exudate, is not appreciated. 19:33 Neck: ROM/movement: is normal, is supple, no meningismus, no nuchal rigidity, Lymph nodes: no appreciated lymphadenopathy. 19:33 Chest/axilla: Inspection: normal. 19:33 Cardiovascular: Rate: normal, Rhythm: regular. 19:33 Respiratory: the patient does not display signs of respiratory distress, Respirations: normal, no use of accessory muscles, no retractions, labored breathing, is not present, Breath sounds: decreased breath sounds, are not appreciated, stridor, is not appreciated, + upper airway congestion. wheezing: is not appreciated. 19:33 Abdomen/GI: Exam negative for discomfort, distension, guarding, Inspection: abdomen appears normal. 19:33 Back: CVA tenderness, is absent. 19:33 Skin: no rash present. 19:33 Neuro: Orientation: to person, place \T\ time. Mentation: is normal, Motor: moves all fours, strength is normal, Gait: is steady, at a normal pace, without difficulty. Vital Signs: 19:08 BP 120 / 85; Pulse 86; Resp 17; Temp 98.1(O); Pulse Ox 99% on R/A; Weight 108.86 kg ll3 (R); Height 5 ft. 10 in. (177.80 cm) (R); Pain 0/10; 19:08 Body Mass Index 34.44 (108.86 kg, 177.80 cm) ll3 MDM: 19:18 Patient medically screened. cp 21:46 Data reviewed: vital signs, nurses notes, lab test result(s). cp 21:46 Consideration of Admission/Observation Escalation of care including cp admission/observation considered. Test considered but Not performed: Labs: cbc, bmp. Counseling: I had a detailed discussion with the patient and/or guardian regarding: the historical points, exam findings, and any diagnostic results supporting the discharge/admit diagnosis, lab results, the need for outpatient follow up, a family practitioner, to return to the emergency department if symptoms worsen or persist or if there are any questions or concerns that arise at home. ED course: VSS. Discussed results of labs and symptoms cause most likely viral URI. Recommend symptomatic treatment and continue oral antibiotics. Will offer Rocephin IM due to recent positive test for gonorrhea and discharge to home for continued monitoring. 05/05 19:18 Order name: COVID-19/FLU A+B; Complete Time: 20:51 05/05 20:51 Interpretation: Reviewed. 05/05 19:18 Order name: Strep; Complete Time: 20:51 05/05 20:45 Order name: Throat Culture [facility] 05/05 20:51 Order name: Urine Microscopic Only 05/05 21:21 Order name: Urine --Ancillary (enter results) 05/05 21:21 Order name: Urine Dipstick-Ancillary; Complete Time: 21:40 [facility] 05/05 21:40 Interpretation: Normal except: UESTR 2+. 05/05 20:51 Order name: Urine Dipstick-Ancillary (obtain specimen); Complete Time: 21:20 05/05 20:51 Order name: Urine Test (obtain specimen); Complete Time: 21:20 05/05 21:31 Order name: Urine --Ancillary; Complete Time: 21:40 [facility] 05/05 21:41 Order name: Urine Culture cp Administered Medications: 22:03 Not Given (Patient Refused): Rocephin (cefTRIAXone) 1 grams IM once ll3 Disposition Summary: 05/05/22 21:47 Discharge Ordered Location: Home cp Problem: new cp Symptoms: have improved cp Condition: Stable cp Diagnosis - Encounter for screening for infections with a predominantly sexual mode of cp transmission - Acute nasopharyngitis [common cold] cp Followup: cp - With: Private Physician - When: 2 - 3 days - Reason: Worsening of condition Discharge Instructions: - Discharge Summary Sheet cp - Pharyngitis cp - Sore Throat cp - Cough, Adult cp - Preventing Sexually Transmitted Infections, Adult cp Forms: - Medication Reconciliation Form cp - Thank You Letter cp - Antibiotic Education cp - Prescription Opioid Use cp - Work release form ll3 Prescriptions: - Flonase Allergy Relief 50 mcg/actuation Nasal spray,suspension - inhale 1 spray by INTRANASAL route once daily; 1 Device; Refills: 0, Product cp Selection Permitted - Tessalon Perles 100 mg Oral Capsule - take 2 capsule by ORAL route every 8 hours As needed; 30 capsule; Refills: 0, cp Product Selection Permitted Addendum: 05/07/2022 07:19 Co-signature as Attending Physician, Duarte Bustos MD I reviewed the patient's care r n provided by the Advanced Practice Provider and agree with the diagnosis and treatment plan. Signatures: Dispatcher [employer] EDDuarte Kirkpatrick MD MD rn Page, Corey, PA PA Laura Whitfield RN RN ll3 Corrections: (The following items were deleted from the chart) 05/06 20:48 05/05 19:25 Onset: The symptoms/episode began/occurred this past Friday, cp cp 05/06 21:43 20:48 Constitutional: Positive for body aches, Negative for fever, poor PO intake, cp cp 21:43 20:48 Cardiovascular: Negative for chest pain, cp cp
--- NOTE | 2022-05-05 21:48 | ER ---
Nurse's Notes [facility] Name: Wendy Richards Age: 27 yrs Sex: Female : 1995 Arrival Date: 05/05/2022 Time: 19:03 Bed 9 Private MD: Diagnosis: Encounter for screening for infections with a predominantly sexual mode of transmission;Acute nasopharyngitis [common cold] Presentation: 05/05 19:08 Chief complaint: Patient states: I tested positive Friday for gonorrhea, I started my ll3 antibiotics on Friday, Friday night I stared having, a stiff neck, body aches, SOB, congestion, no taste or smell, Im scared my symptoms are from my gonorrhea being untreated for so long. Coronavirus screen: Vaccine status: Patient reports receiving the 2nd dose of the covid vaccine. congestion, cough unrelated to allergies, fatigue, headache, shaking with chills, shortness of breath, loss of taste or smell. Ebola Screen: No symptoms or risks identified at this time. Initial Sepsis Screen: Does the patient meet any 2 criteria? No. Patient's initial sepsis screen is negative. Does the patient have a suspected source of infection? No. Patient's initial sepsis screen is negative. Risk Assessment: Do you want to hurt yourself or someone else? Patient reports no desire to harm self or others. Onset of symptoms was May 04, 2022. 19:08 Method Of Arrival: Ambulatory ll3 19:08 Acuity: PEEWEE 3 ll3 DISPLAY DESIGNER: 19:13 LMP 04/12/2022 ll3 Historical: - Allergies: 19:13 No Known Allergies; ll3 - Home Meds: 19:13 Doxycycline Oral [Active]; Flagyl Oral [Active]; ll3 - PMHx: 19:13 None; ll3 - PSHx: 19:13 Appendectomy; Tonsillectomy; ll3 - Immunization history:: Client reports receiving the 2nd dose of the Covid vaccine. - Social history:: Smoking status: Patient denies any tobacco usage or history of. Screenin:24 [facility] ED Fall Risk Assessment (Adult) History of falling in the last 3 months, bb including since admission No falls in past 3 months (0 pts) Score/Fall Risk Level 0 - 2 = Low Risk Oriented to surroundings, Maintained a safe environment. Abuse screen: Denies threats or abuse. Nutritional screening: No deficits noted. Tuberculosis screening: No symptoms or risk factors identified. Assessment: 20:24 General: Appears in no apparent distress. uncomfortable, Behavior is calm, cooperative. bb Pain: Complains of pain in body aches. Neuro: Level of Consciousness is awake, alert, obeys commands, Oriented to person, place, time, situation. Cardiovascular: Capillary refill < 3 seconds Patient's skin is warm and dry. Respiratory: Respiratory effort is even, unlabored, Respiratory pattern is regular. GI: No deficits noted. Derm: Skin is pink, warm \T\ dry. Musculoskeletal: Circulation, motion, and sensation intact. 21:26 Reassessment: Patient is alert, oriented x 3, equal unlabored respirations, skin bb warm/dry/pink. pt is awaiting diagnostic results. Vital Signs: 19:08 BP 120 / 85; Pulse 86; Resp 17; Temp 98.1(O); Pulse Ox 99% on R/A; Weight 108.86 kg ll3 (R); Height 5 ft. 10 in. (177.80 cm) (R); Pain 0/10; 19:08 Body Mass Index 34.44 (108.86 kg, 177.80 cm) ll3 ED Course: 19:03 Patient arrived in ED. mr 19:04 Raji Mario PA is PHCP. cp 19:04 Duarte Bustos MD is Attending Physician. cp 19:12 Triage completed. ll3 19:13 Arm band placed on. ll3 20:24 Patient has correct armband on for positive identification. Call light in reach. bb 20:24 No provider procedures requiring assistance completed. Patient did not have IV access bb during this emergency room visit. Administered Medications: 22:03 Not Given (Patient Refused): Rocephin (cefTRIAXone) 1 grams IM once ll3 Medication: 20:24 VIS not applicable for this client. bb Outcome: 21:47 Discharge ordered by . cp 22:04 Discharged to home ambulatory. ll3 22:04 Condition: stable 22:04 Discharge instructions given to patient, Instructed on discharge instructions, follow up and referral plans. medication usage, Demonstrated understanding of instructions, follow-up care, medications, Prescriptions given X 2. 22:05 Patient left the ED. ll3 Signatures: Indigo Beltrán mr Blossom Ellsworth RN RN bb Raji Mario PA PA cp Loubet, Laura, RN RN ll3
[2022-05-05] MEDS ORDERED: CEFTRIAXONE 1000 MG/VIAL ONE (22:02)
[2022-05-05] MEDS ORDERED: LIDOCAINE 1% MPF 2 ML AMPULE ONE (22:03)
[2022-05-05 22:17] VITALS: BP 120/85; TEMP 98.1; O2SAT 99
== END 2022-05-05 22:05 | disposition home or self-care (01) ==
LOC: ER 19:00
DX: Z11.3 Encounter for screening for infections with a predominantly sexual mode of transmission (principal); J00 Acute nasopharyngitis [common cold]; Z20.822 Contact with and (suspected) exposure to COVID-19
CPT/HCPCS: 87070; 81025; 87081; 0240U; 99282; 81003; 81015